=== PATIENT | female | born 1975 | race Caucasian/White ===

== ENCOUNTER 2019-05-15 10:53 | Observation (INO) | payer MEDICAID ==
[~2019-05-15] VITALS: Ht 145 cm; Wt 66.3 kg
[~2019-05-15 10:53] MED LIST: ALBU8.5H4 IH; CITA40TA19 PO; GBPN300C PO; HYDR-34 PO; HYDR-623 PO; LSNP20T PO; METF-380 PO; PENI500T PO; RT-FLOV110 INH; TRAZ50TA67 PO
--- NOTE | 2019-05-15 11:27 | ED Chest Pain ---
General Chief Complaint: Chest Pain Stated Complaint: LEFT SIDED CHEST PAIN Nursing Triage Note: PT AMB TO RM 10 WITH COMPLAINT OF CHEST PAIN THAT STARTED LAST NIGHT. STATES TOOK ASA AND NITRO AT HOME LAST NIGHT AND WENT TO [facility] BUT LEFT AMA FROM THEIR WITHOUT GETTING RESULTS. Nursing Sepsis Screen: No Definite Risk History of Present Illness Date Seen by Provider: May 15, 2019 Time Seen by Provider: 11:05 Initial Comments 44 year old female presents with chest pain, has been intermittent chest pain for 48 hours. She was seen in ED at [facility] on 05/11/19 for anxiety and was given Valium; 05/14/19 for chest pain, left before work up was complete. She reports that her chest pain will last anywhere from 10 minutes to 20 minutes it is associated with some nausea but no diaphoresis. She is a type II diabetic who uses metformin, Lantus and NovoLog. She recently [place] [facility] [place] and is not current on all her medications and has not established with a PCP or Contract Design Agent. In 2012 or 2013 she had an AK, she was hospitalized in [facility], she did not have a heart catheterization or other cardiac surgeries. She does report having echocardiogram but is unaware of her results. She also reports a history of atrial fibrillation, however she is not taking any medication for this and is not anticoagulated. She has a history of COPD and uses albuterol inhaler, she has not done this since yesterday. With her recent move, she is unsure where her glucometer isn't has not checked her glucose regularly. She is a poor historian. Timing/Duration: intermittent, 2-3 days Severity/Quality: moderate (8/10) Location: substernal Radiation: arms (left), shoulders, back Activities at Onset: none Prior CP/Workup: angina Modifying Factors: improves with rest ASA po MANAGER SUPPLY CHAIN PLANNING: Yes NTG SL MANAGER SUPPLY CHAIN PLANNING: No (last evening had 1 dose. ) Associated Symptoms: No abdominal pain, No back pain, No diaphoresis, No dizziness, No edema, No fatigue, No fever/chills, No headache; heartburn, nausea/vomiting; No rash; shortness of breath (chronic with exertion, no change and none at rest. ); No swelling/lump in chest, No syncope, No weakness Allergies and Home Medications Allergies Coded Allergies: clindamycin (Verified Allergy, Unknown, 05/15/19) ketorolac (Verified Allergy, Unknown, 05/15/19) Home Medications Albuterol Sulfate 8.5 Gm Hfa.aer.ad, 8.5 GM IH, (Reported) Citalopram Hydrobromide 40 Mg Tablet, 1 EACH PO DAILY, (Reported) Fluticasone Propionate 1 Puff Puff, 1 PUFF INH BID, (Reported) Gabapentin 300 Mg Cap, 300 MG PO TID, (Reported) Hydrocodone Bit/Acetaminophen 1 Ea Tablet, 1 TAB PO PRN, (Reported) Hydrocodone Bit/Acetaminophen 1 Tab Tablet, 1 EACH PO Q4HR PRN Prescribed by: MARTELL MATTA on 04/23/13 1552 Lisinopril 20 Mg Tab, 20 MG PO DAILY, (Reported) Metformin Hcl 1,000 Mg Tablet, 1 EACH PO BID WITH MEALS, (Reported) Penicillin V Potassium 500 Mg Tablet, 1 TAB PO QID Prescribed by: MARTELL MATTA on 04/23/13 155 Trazodone Hcl 50 Mg Tablet, 50 MG PO HS, (Reported) Patient Home Medication List Home Medication List Reviewed: Yes Review of Systems Review of Systems Constitutional: no symptoms reported, see HPI Respiratory: See HPI, SOA With Exertion, Wheezing Cardiovascular: See HPI Gastrointestinal: See HPI, Nausea Genitourinary: No Symptoms Reported, See HPI Musculoskeletal: no symptoms reported, see HPI Skin: no symptoms reported, see HPI Psychiatric/Neurological: See HPI, Anxiety (related to sister and niece who have recenty Overdosed on fentanyl and meth) Endocrine: No Symptoms Reported, See HPI All Other Systems Reviewed Negative Unless Noted: Yes Past Aojjnpw-Iezudt-Csxphe Hx Past Med/Social Hx: Reviewed Nursing Past Med/Soc Hx Patient Social History Alcohol Use: Denies Use Recreational Drug Use: Yes Drug of Choice: MARIJUANA Smoking Status: Current Everyday Smoker Type Used: Cigarettes Recent Foreign Travel: No Contact w/Someone Who Travel: No Recent Infectious Disease Expo: No Immunizations Up To Date Tetanus Booster (TDap): Unknown PED Vaccines UTD: Yes Past Medical History Surgeries: Yes Abdominal, Gallbladder, Tubal Ligation Respiratory: No Cardiac: Yes Atrial Fibrillation, Heart Attack, High Cholesterol, Hypertension Neurological: No 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 oz. [id number]; 28.00 BMI Method: General Appearance: No Apparent Distress, WD/WN; No Anxious HEENT: PERRL/EOMI, TMs Normal, Normal ENT Inspection, Pharynx Normal Neck: Full Range of Motion, Normal Inspection, Non Tender, Supple Respiratory: Chest Non Tender, No Accessory Muscle Use, Rhonci (left>right), Wheezing Cardiovascular: Regular Rate, Rhythm, No Edema, No Murmur, Normal Peripheral Pulses Gastrointestinal: Normal Bowel Sounds, Non Tender, Soft Extremity: Normal Capillary Refill, Normal Inspection, Normal Range of Motion, Non Tender Neurologic/Psychiatric: Alert, Oriented x3, No Motor/Sensory Deficits, Normal Mood/Affect Skin: Normal Color, Warm/Dry Lymphatic: No Adenopathy Progress/Results/Core Measures Results/Orders Lab Results Laboratory Tests Test 05/15/19 11:10 05/15/19 11:35 05/15/19 11:37 Range/Units White Blood Count 8.2 4.3-11.0 10^3/uL Red Blood Count 3.64 L 4.35-5.85 10^6/uL Hemoglobin 13.4 11.5-16.0 G/DL Hematocrit 39 35-52 % Mean Corpuscular Volume 108 H 80-99 FL Mean Corpuscular Hemoglobin 37 H 25-34 PG Mean Corpuscular Hemoglobin Concent 34 32-36 G/DL Red Cell Distribution Width 12.7 10.0-14.5 % Platelet Count 290 130-400 10^3/uL Mean Platelet Volume 9.6 7.4-10.4 FL Neutrophils (%) (Auto) 48 42-75 % Lymphocytes (%) (Auto) 42 12-44 % Monocytes (%) (Auto) 8 0-12 % Eosinophils (%) (Auto) 2 0-10 % Basophils (%) (Auto) 1 0-10 % Neutrophils # (Auto) 3.9 1.8-7.8 X 10^3 Lymphocytes # (Auto) 3.5 1.0-4.0 X 10^3 Monocytes # (Auto) 0.7 0.0-1.0 X 10^3 Eosinophils # (Auto) 0.2 0.0-0.3 10^3/uL Basophils # (Auto) 0.1 0.0-0.1 10^3/uL Prothrombin Time 12.4 12.2-14.7 SEC INR Comment 0.9 0.8-1.4 Activated Partial Thromboplast Time 26 24-35 SEC D-Dimer 0.23 0.00-0.49 UG/ML Sodium Level 136 135-145 MMOL/L Potassium Level 4.8 3.6-5.0 MMOL/L Chloride Level 109 H 98-107 MMOL/L Carbon Dioxide Level 20 L 21-32 MMOL/L Anion Gap 7 5-14 MMOL/L Blood Urea Nitrogen 14 7-18 MG/DL Creatinine 0.88 0.60-1.30 MG/DL Estimat Glomerular Filtration Rate > 60 BUN/Creatinine Ratio 16 Glucose Level 155 H 70-105 MG/DL Calcium Level 8.8 8.5-10.1 MG/DL Corrected Calcium 8.8 8.5-10.1 MG/DL Magnesium Level 1.6 1.6-2.4 MG/DL Total Bilirubin 0.2 0.1-1.0 MG/DL Aspartate Amino Transf (AST/SGOT) 11 5-34 U/L Alanine Aminotransferase (ALT/SGPT) 12 0-55 U/L Alkaline Phosphatase 77 40-136 U/L Myoglobin 20.5 10.0-92.0 NG/ML Troponin I < 0.028 <0.028 NG/ML Total Protein 6.9 6.4-8.2 GM/DL Albumin 4.0 3.2-4.5 GM/DL Glucometer 119 H 70-110 MG/DL Urine Color YELLOW Urine Clarity CLEAR Urine pH 6 5-9 Urine Specific [place] 1.015 L 1.016-1.022 Urine Protein 2+ H NEGATIVE Urine Glucose (UA) NEGATIVE NEGATIVE Urine Ketones NEGATIVE NEGATIVE Urine Nitrite NEGATIVE NEGATIVE Urine Bilirubin NEGATIVE NEGATIVE Urine Urobilinogen NORMAL NORMAL MG/DL Urine Leukocyte Esterase 2+ H NEGATIVE Urine RBC (Auto) NEGATIVE NEGATIVE Urine RBC NONE /HPF Urine WBC 0-2 /HPF Urine Squamous Epithelial Cells TNTC H /HPF Urine Crystals NONE /LPF Urine Bacteria FEW H /HPF Urine Casts NONE /LPF Urine Mucus NEGATIVE /LPF Urine Culture Indicated NO Urine Opiates Screen NEGATIVE NEGATIVE Urine Oxycodone Screen NEGATIVE NEGATIVE Urine Methadone Screen NEGATIVE NEGATIVE Urine Propoxyphene Screen NEGATIVE NEGATIVE Urine Barbiturates Screen POSITIVE H NEGATIVE Ur Tricyclic Antidepressants Screen POSITIVE H NEGATIVE Urine Phencyclidine Screen NEGATIVE NEGATIVE Urine Amphetamines Screen NEGATIVE NEGATIVE Urine Methamphetamines Screen NEGATIVE NEGATIVE Urine Benzodiazepines Screen POSITIVE H NEGATIVE Urine Cocaine Screen NEGATIVE NEGATIVE Urine Cannabinoids Screen NEGATIVE NEGATIVE My Orders Orders - PRETTY FATIMA METAPHYSICIST Cbc With Automated Diff (05/15/19 11:22) Magnesium (05/15/19 11:22) Ekg Tracing (05/15/19 11:22) Cardiac Profile 1 (05/15/19 11:22) Comprehensive Metabolic Panel (05/15/19 11:22) Myoglobin Serum (05/15/19 11:22) Protime With Inr (05/15/19 11:22) Partial Thromboplastin Time (05/15/19 11:22) Monitor-Rhythm Ecg Trace Only (05/15/19 11:22) Ed Iv/Invasive Line Start (05/15/19 11:22) Fibrin Degradation Products (05/15/19 11:22) Nitroglycerin 0.4 Mg Btl 25's (Nitrostat (05/15/19 11:30) Chest Pa/Lat (2 View) (05/15/19 11:22) Drug Screen Stat (Urine) (05/15/19 11:22) Ua Culture If Indicated (05/15/19 11:22) Accucheck Stat ONCE (05/15/19 11:24) Ed Iv/Invasive Line Start (05/15/19 11:30) Ns Iv 1000 Ml (Sodium Chloride 0.9%) (05/15/19 11:30) Ondansetron Injection (Zofran Injectio (05/15/19 11:30) Lidocaine 2% Viscous 15 Ml (Xylocaine Vi (05/15/19 12:30) Antacid Suspension (Mylanta Suspension (05/15/19 12:30) Albuterol/Ipra Inhalation Soln (Duoneb I (05/15/19 12:30) Svn Small Volume Nebulizer (05/15/19 12:23) Morphine Injection (Morphine Injection (05/15/19 12:34) Medications Given in ED Current Medications Medications Dose Ordered Sig/Maki Route Start Time Stop Time Status Last Admin Dose Admin Al Hydrox/Mg Hydrox/Simethicone 30 ml ONCE ONCE PO 05/15/19 12:30 05/15/19 12:31 DC 05/15/19 12:29 30 ML Albuterol/ Ipratropium 3 ml ONCE ONCE INH 05/15/19 12:30 05/15/19 12:31 DC 05/15/19 12:36 3 ML Lidocaine HCl 15 ml ONCE ONCE PO 05/15/19 12:30 05/15/19 12:31 DC 05/15/19 12:29 15 ML Nitroglycerin 0.4 mg UD PRN SL 05/15/19 11:30 05/15/19 12:46 DC 05/15/19 12:46 0.4 MG Ondansetron HCl 4 mg ONCE ONCE IVP 05/15/19 11:30 05/15/19 11:33 DC 05/15/19 12:09 4 MG Vital Signs/I&O 05/15/19 05/15/19 05/15/19 10:58 10:58 12:36 Temp 35.8 Pulse 85 Resp 21 B/P (MAP) 146/97 (113) Pulse Ox 99 98 O2 Delivery Room Air Room Air Room Air Blood Pressure Mean: 113 Progress Progress Note : Time: 11:05 Progress Note Patient seen and evaluated, will start chest pain workup including EKG, chest x- ray, and labs. She took aspirin prior to arrival, will give nitroglycerin one tablet and repeat up to 3 total doses. 1140 EKG and CXR negative. Awaiting labs. Nausea improved after Zofran. 12:00 will give second dose of Nitro, Duoneb tx and continue to monitor. 1225 Patient reports some improvement with DuoNeb, but still feels pain is an issue and would like to try Morphine. Will give 2 mg. 1240 Patient report GERD, will give GI Cocktail 1250 Patient reports pain improving, 4/10. After 3 doses of Nitro, Morphine 2 mg IV and GI cocktail. [address] Curiel, recommended admission, Echo, Toprol XL [address] Hawk to admit to hospitalist service, she agreed. 1320 Patient taken to Cardiac Stepdown. Remained stable, reports her pain is starting to increase again. Initial ECG Impression Date: May 15, 2019 Initial ECG Impression Time: 10:55 Initial ECG Rate: 79 Initial ECG Rhythm: Normal Sinus Initial ECG Intervals: Normal Initial ECG Intervals MN 148, QRSD 92, QT 376, QTC 432. [place] P 50, QRS 7, T 52. Initial ECG Impression: Normal Initial ECG Comparisson: No Previous ECG Available Comment Reviewed with Dr. Blevins, agreed with interpretation. Diagnostic Imaging Diagonstic Imaging: Xray Plain Films/CT/US/NM/MRI: chest Comments NAME: KAREL BRYANT [facility] REC#: [id number] PT STATUS: REG ER : 1975 PHYSICIAN: PRETTY FATIMA ADMIT DATE: 05/15/19/ER Draft Date of Exam:05/15/19 CHEST PA/LAT (2 VIEW) INDICATION: Chest pain. COMPARISON: None. FINDINGS: Frontal and lateral views of the chest demonstrate normal heart size and pulmonary vascularity. The lungs are clear. There are no signs of infiltrate, pleural effusions or pneumothoraces. The visualized osseous structures show no acute abnormalities. IMPRESSION: 1. No acute process. No signs of infiltrates, effusions or pneumothoraces. Dictated on workstation # [id number] Dict: 05/15/19 1145 Trans: 05/15/19 1146 [id number] Interpreted by: JERRY PEÑA MD Electronically signed by: Reviewed: Reviewed by Me Departure Impression Primary Impression: Chest pain Qualified Codes: R07.9 - Chest pain, unspecified Additional Impressions: A-fib Qualified Codes: I48.91 - Unspecified atrial fibrillation Diabetes type 2, controlled Qualified Codes: E11.9 - Type 2 diabetes mellitus without complications; Z79.4 - long-term (current) use of insulin Anxiety GERD (gastroesophageal reflux disease) Qualified Codes: K21.9 - Gastro-esophageal reflux disease without esophagitis Disposition: ADMITTED INPATIENT Condition: Stable Admissions Decision to Admit Reason: Admit from ER (General) Decision to Admit/Date: May 15, 2019 Time/Decision to Admit Time: 13:00 Departure-Patient Inst. Referrals: KRISTAL MARIE (PCP/Family) Primary Care Physician Copy Copies To 1: GIL CURIEL MD FACP FAC CCDS PRETTY FATIMA May 15, 2019 11:27
[2019-05-15] MEDS ORDERED: NS IV 1000 ML 1,000 ML IV SCH (11:30)
[2019-05-15] MEDS ORDERED: ONDANSETRON 4 MG/2 ML (SDV) Z0FRAN IVP ONE (11:30)
[2019-05-15 11:31] LABS: BASOPHILS # (AUTO) 0.1 10^3/uL (0.0-0.1); BASOPHILS % (AUTO) 1 % (0-10); EOSINOPHILS # (AUTO) 0.2 10^3/uL (0.0-0.3); EOSINOPHILS % (AUTO) 2 % (0-10); HEMATOCRIT 39 % (35-52); HEMOGLOBIN 13.4 G/DL (11.5-16.0); LYMPHOCYTES # (AUTO) 3.5 X 10^3 (1.0-4.0); LYMPHOCYTES % (AUTO) 42 % (12-44); MEAN CORPUSCULAR HEMOGLOBIN 37 PG (25-34); MEAN CORPUSCULAR HGB CONC 34 G/DL (32-36); MEAN CORPUSCULAR VOLUME 108 FL (80-99); MEAN PLATELET VOLUME 9.6 FL (7.4-10.4); MONOCYTES # (AUTO) 0.7 X 10^3 (0.0-1.0); MONOCYTES % (AUTO) 8 % (0-12); NEUTROPHILS # (AUTO) 3.9 X 10^3 (1.8-7.8); NEUTROPHILS % (AUTO) 48 % (42-75); PLATELET COUNT 290 10^3/uL (130-400); RED CELL DISTRIBUTION WIDTH 12.7 % (10.0-14.5); WHITE BLOOD COUNT 8.2 10^3/uL (4.3-11.0)
[2019-05-15 11:36] LABS: INR 0.9 (0.8-1.4); PROTHROMBIN TIME PATIENT 12.4 SEC (12.2-14.7)
[2019-05-15 11:46] LABS: ALANINE AMINOTRANSFERASE 12 U/L (0-55); ALKALINE PHOSPHATASE 77 U/L (40-136); BILIRUBIN,TOTAL 0.2 MG/DL (0.1-1.0); BUN/CREATININE RATIO 16; CALCIUM 8.8 MG/DL (8.5-10.1); CARBON DIOXIDE 20 MMOL/L (21-32); CHLORIDE 109 MMOL/L (98-107); CREATININE SERUM 0.88 MG/DL (0.60-1.30); GFR ESTIMATED > 60; GLUCOSE 155 MG/DL (70-105); MAGNESIUM 1.6 MG/DL (1.6-2.4); POTASSIUM 4.8 MMOL/L (3.6-5.0); SODIUM 136 MMOL/L (135-145); TOTAL PROTEIN 6.9 GM/DL (6.4-8.2)
--- NOTE | 2019-05-15 11:46 | Diagnostic Imaging Report ---
INDICATION: Chest pain. COMPARISON: None. FINDINGS: Frontal and lateral views of the chest demonstrate normal heart size and pulmonary vascularity. The lungs are clear. There are no signs of infiltrate, pleural effusions or pneumothoraces. The visualized osseous structures show no acute abnormalities. IMPRESSION: 1. No acute process. No signs of infiltrates, effusions or pneumothoraces. Dictated by: Dictated on workstation # [id number]
[2019-05-15 11:59] LABS: AMPHETAMINE SCREEN, URINE NEGATIVE (NEGATIVE); BARBITURATE SCREEN URINE POSITIVE (NEGATIVE); BENZODIAZEPINES SCREEN URINE POSITIVE (NEGATIVE); CANNABINOID SCREEN, URINE NEGATIVE (NEGATIVE); COCAINE SCREEN URINE NEGATIVE (NEGATIVE); METHADONE STAT NEGATIVE (NEGATIVE); METHAMPHETAMINE SCREEN URINE S NEGATIVE (NEGATIVE); OPIATE SCREEN URINE NEGATIVE (NEGATIVE); OXYCODONE STAT NEGATIVE (NEGATIVE); PROPOXYPHENE STAT NEGATIVE (NEGATIVE); TRICYCLIC ANTIDEPRESSANTS SCRE POSITIVE (NEGATIVE)
[2019-05-15 12:02] LABS: BILIRUBIN,URINE NEGATIVE (NEGATIVE); CLARITY,URINE CLEAR; COLOR,URINE YELLOW; GLUCOSE, URINE (UA) NEGATIVE (NEGATIVE); KETONES,URINE NEGATIVE (NEGATIVE); LEUKOCYTE ESTERASE ,URINE 2+ (NEGATIVE); NITRITE,URINE NEGATIVE (NEGATIVE); PH,URINE 6 (5-9); PROTEIN,URINE 2+ (NEGATIVE); WBC,URINE 0-2 /HPF
[2019-05-15 12:03] LABS: BACTERIA,URINE FEW /HPF; SQUAMOUS EPITHELIAL CELL,UR TNTC /HPF
[2019-05-15] MEDS: NITROGLYCERIN 0.4 MG SL TABS BTL 25'S SL PRN ×3 (12:09→12:46)
[2019-05-15] MEDS ORDERED: RT-ALBUTEROL/IPRATROPIUM 3 ML (DUONEB) VIAL INH ONE (12:30)
[2019-05-15] MEDS ORDERED: ANTACID SUSP 30 ML UDC (MYLANTA) PO ONE (12:30)
[2019-05-15] MEDS ORDERED: LIDOCAINE 2% VISCOUS 15 ML UDC PO ONE (12:30)
[2019-05-15] MEDS ORDERED: morphine INJ 10 MG/ML 1ML (SYR OR VIAL) IVP STA (12:34)
[2019-05-15] MEDS ORDERED: meTOproloL SUCCINATE 50 MG (TOPROL XL) TAB PO SCH (13:30)
[2019-05-15 13:42] VITALS: BP 149/89
[2019-05-15] MEDS ORDERED: ONDANSETRON 4 MG/2 ML (SDV) Z0FRAN IV PRN (14:00)
[2019-05-15] MEDS ORDERED: NITROGLYCERIN 0.4 MG SL TABS BTL 25'S SL PRN (14:00)
[2019-05-15 14:02] VITALS: BP 149/89
--- NOTE | 2019-05-15 14:15 | History & Physical-Hospitalist ---
History of Present Illness HPI/Chief Complaint Pt is a 44yoCF with a PMH of COPD, HTN, IDDMII, who presented to the ER due to chest pain. She was seen in the ER on 05/11 at [place] and was diagnosed ith anxiety and discharged home. She returned last night but left prior to complete workup as she believes they "tagged me as a drug seeker." She reports he chest pain has continued but is intermittent, lasting 10-20 minutes. She states it is under her left breast and is worse with a deep breath. She is worried she has pneumonia. She also reports increased cough, diaphoresis and chills, and increased inhaler use. She reports a history of COPD but is not on any co ntroller medicines. She is a current smoker and smokes 5/cig per day. She does smoke marijuana around 1x/month as well. Source: patient Date Seen 05/15/19 Time Seen by a Provider: 13:50 Attending Physician Yulissa Hawk MD PCP Humaira Juarez Referring Physician Date of Admission May 15, 2019 at 13:18 Home Medications & Allergies Home Medications Reviewed patient Home Medication Reconciliation performed by pharmacy medication reconciliations seed laboratory technician and/or nursing. Patients Allergies have been reviewed. Allergies Allergies Coded Allergies clindamycin (Verified Allergy, Unknown, 05/15/19) ketorolac (Verified Allergy, Unknown, 05/15/19) Past Bkorxbt-Plzfrk-Ggossf Hx Past Med/Social Hx: Reviewed Nursing Past Med/Soc Hx Patient Social History Alcohol Use: Denies Use Recreational Drug Use: Yes Drug of Choice: MARIJUANA Smoking Status: Current Everyday Smoker Type Used: Cigarettes Recent Foreign Travel: No Contact w/other who traveled: No Recent Infectious Disease Expo: No Immunizations Up To Date Tetanus Booster (TDap): Unknown Pediatric: Yes Past Medical History Surgeries: Abdominal, Gallbladder, Tubal Ligation Cardiac: Atrial Fibrillation, Heart Attack, High Cholesterol, Hypertension Tubal Ligation Endocrine: Diabetes, Insulin dep Cancer: Liver Psychosocial: Anxiety, Depression History of Blood Disorders: Yes (Hepatitis C) Review of Systems Constitutional: chills, diaphoresis, fever (subjective) EENTM: no symptoms reported Respiratory: cough; No hemoptysis; phlegm (yellow), wheezing Cardiovascular: see HPI, chest pain Gastrointestinal: no symptoms reported Genitourinary: no symptoms reported Musculoskeletal: no symptoms reported Skin: no symptoms reported Psychiatric/Neurological: No Symptoms Reported Physical Exam Physical Exam Vital Signs Vital Signs - First Documented 05/15/19 10:58 Temp 35.8 Pulse 85 Resp 21 B/P (MAP) 146/97 (113) Pulse Ox 99 O2 Delivery Room Air Capillary Refill : Less Than 3 Seconds Height, Weight, BMI Height: '" Weight: 160lbs. oz. [id number]; 28.10 BMI Method: General Appearance: No Apparent Distress, Chronically ill HEENT: PERRL/EOMI, Moist Mucous Membranes; No Scleral Icterus (L), No Scleral Icterus (R) Neck: Normal Inspection, Supple Respiratory: No Accessory Muscle Use, No Respiratory Distress, Rhonci, Wheezing Cardiovascular: Regular Rate, Rhythm, No Murmur Gastrointestinal: Normal Bowel Sounds, Non Tender, Soft Extremity: Non Tender, No Calf Tenderness, No Pedal Edema Neurologic/Psychiatric: Alert, Oriented x3, Normal Mood/Affect Skin: Normal Color, Warm/Dry, Tattoos/Piercings Results Results/Procedures Labs Laboratory Tests 05/15/19 11:10 Patient resulted labs reviewed. Imaging: Reviewed Imaging Report Assessment/Plan Admission Diagnosis Chest Pain Admission Status: Observation Assessment and Plan Chest Pain COPD Exacerbation Cardiology consulted, serial troponins Echo ordered Likely due to COPD exacerbation Will start steroids, Advair, and Singulair CXR negative for infiltrate, procalcitonin ordered On Room air IDDMII Continue home meds when med rec available HTN Continue home meds when med rec available Tobacco Abuse Marijuana Abuse Recommended cessation Diagnosis/Problems Diagnosis/Problems (1) COPD (chronic obstructive pulmonary disease) Qualifiers: COPD type: COPD with acute exacerbation Qualified Codes: J44.1 - Chronic obstructive pulmonary disease with (acute) exacerbation (2) HTN (hypertension) (3) Chest pain Status: Acute Qualifiers: Chest pain type: unspecified Qualified Codes: R07.9 - Chest pain, unspecified (4) GERD (gastroesophageal reflux disease) Status: Acute Qualifiers: Esophagitis presence: esophagitis presence not specified Qualified Codes: K21.9 - Gastro-esophageal reflux disease without esophagitis (5) Anxiety Status: Acute Clinical Quality Measures AMI/AHF: ASA po Prior to arrival: Yes YULISSA HAWK MD May 15, 2019 14:15
[2019-05-15] MEDS: morphine INJ 4 MG/ML 1 ML (VIAL/SYRINGE) IV PRN ×4 (14:22→21:26)
[2019-05-15] MEDS ORDERED: predniSONE 20 MG TAB PO NR (14:24)
[2019-05-15] MEDS ORDERED: FLU QUADRIvalent (5+ YOA) 2019-2020 (AFLURIA) 0.5 ML IM ONE (14:30)
[2019-05-15] MEDS ORDERED: ATOR40TA70 PO (15:35)
[2019-05-15] MEDS ORDERED: INSU100V SQ (15:35)
[2019-05-15] MEDS ORDERED: CHOL500044 PO (15:35)
[2019-05-15] MEDS ORDERED: INSU100V6 SQ (15:35)
[2019-05-15] MEDS ORDERED: AMIT25TA9 PO (15:35)
[2019-05-15] MEDS ORDERED: LISI-552 PO (15:35)
[2019-05-15] MEDS ORDERED: GABA-490 PO (15:35)
[2019-05-15] MEDS ORDERED: ACET-2267 PO (15:35)
[2019-05-15] MEDS ORDERED: MULT-141 PO (15:35)
[2019-05-15] MEDS ORDERED: BUTA1TAB9 PO (15:35)
[2019-05-15] MEDS ORDERED: METF-399 PO (15:35)
[2019-05-15 15:38] VITALS: BP 146/97
[2019-05-15] MEDS ORDERED: RT-ALBUINH IH (15:39)
[2019-05-15] MEDS ORDERED: DICL100G18 TP (15:39)
[2019-05-15] MEDS ORDERED: FLUT16SP22 NS (15:42)
[2019-05-15] MEDS ORDERED: VENL75CA PO (15:42)
[2019-05-15] MEDS ORDERED: CETI10TA20 PO (15:42)
--- NOTE | 2019-05-15 15:42 | NUR ---
SPOKE WITH THE PATIENT ABOUT HER MEDICATIONS. SHE STATES SHE USES [facility] ON [address] IN [place] BUT HAS RECENTLY MOVED HERE SO PREVIOUSLY HER SCRIPTS WERE FILLED AT [facility] IN [facility]. THE PATIENT LISTED HER MEDICATIONS AND FREQUENCIES TO ME THEN I CALLED THAT [facility] LOCATION FOR A LIST OF RECENTLY FILLED MEDICATION. [facility] FILLED: (THE CHECKED THEIR CENTRAL PROFILE SO MULTIPLE LOCATIONS) 05-14-19 ZYRTEC 10MG HS 05-14-19 EFFEXOR XR 75MG DAILY #30 05-14-19 FLONASE 1 SPRAY NS BID 05-10-19 GABAPENTIN 400MG TID (ONLY TAKES IT BID) 05-10-19 HUMALOG VIALS 5 UNITS TIDAC 05-10-19 LANTUS VIALS 14 UNITS HS 05-01-19 BUTALBITAL/ACETAMINOPHEN/CAFFEINE 325-50-40 Q4H PRN 04-28-19 AMITRIPTYLINE 25MG HS 03-01-19 METFORMIN 1000MG BID #60 03-01-19 LISINOPRIL 20MG DAILY #30 01-27-19 LIPITOR 40MG HS #30 I NOTED THE PAST DUE FILL DATES ON THE MED REC OF THE ABOVE MEDICATIONS. SHE REPORTED TAKING THE FOLLOWING HOWEVER THEY HAVE NOT BEEN FILLED RECENTLY. I CHECKED WITH [facility] AND DID NOT HAVE ANY RECENT FILLS. I DID NOT INCLUDE THESE ON THE MED REC AT THIS TIME. 12-31-16 SOMA 350MG TID PRN #90 12-31-16 DIAZEPAM 2MG BID PRN #60 NOT OF FILE AT [facility] WAS PROAIR AND VOLTAREN GEL. SHE STATES SHE THINKS SHE HAS RECEIVED THESE MEDICATIONS SAMPLES, SHE DOES HAVE THEM AND USES THEM NEEDED. OTC MEDS: TYLENOL 2 PRN WOMEN'S VITAMIN DAILY VITAMIN D3 (DOES NOT KNOW THE DOSE BUT BUYS OTC AND ONLY TAKES 1 TIME WEEKLY ON MONDAYS.
[2019-05-15] MEDS: NS IV 1000 ML 1,000 ML IV SCH (15:46)
[2019-05-15 16:00] VITALS: BP 150/92
[2019-05-15] MEDS ORDERED: RT-ALBUTEROL/IPRATROPIUM 3 ML (DUONEB) VIAL INH PRN (16:00)
[2019-05-15] MEDS ORDERED: NON-FORMULARY MEDICATION 1 EA EA (Acetaminophen (Tylenol Extra Strength) 1,000 MG) PO PRN (16:45)
[2019-05-15] MEDS ORDERED: hydrOXYzine (ATARAX) 10 MG TAB PO PRN (16:45)
[2019-05-15] MEDS ORDERED: ACETAMINOPHEN 500 MG TAB (TYLENOL) PO PRN (17:00)
--- NOTE | 2019-05-15 18:34 | Consultation-Cardiology ---
HPI-Cardiology Cardiology Consultation: Date of Consultation 05/15/19 Time Seen by a Provider: 18:00 Date of Admission Attending Physician Barbara Hawk MD Admitting Physician Humaira Juarez Consulting Physician GIL SANCHEZ MD, FACP, FACC, [facility] [place], [facility] HPI: Chief Complaint: CC: Chest discomfort HPI 44 yo woman admitted with increasing shortness of breath an intermittent chest discomfort for two weeks. Shortness of breath is chronic, but slowly progressive. Denies fever or chills or palp or syncope or leg swelling. Chest discomfort: onset two weeks ago, daily episodes lasting from a few min to an hour, L lateral chest, nonradiating, mild to mod, sometimes sharp, sometimes dull, w/o aggravating or relieving factors. Review of Systems-Cardiology Review of Systems Constitutional: malaise, tiredness; No weight loss, No weight gain Eyes: No vision change Ears/Nose/Throat: No ear discharge, No recent hearing loss, No ulcerations Respiratory: As described under HPI Cardiovascular: As described under HPI Gastrointestinal: No diarrhea, No nausea, No vomiting Genitourinary: No dysuria, No hematuria, No urine frequency changes Musculoskeletal: back pain (chronic) Skin: No rash, No ulcerations Psychiatric/Neurological: No seizure, No focal weakness, No syncope Hematologic: No bleeding abnormalities All Other Systems Reviewed Negative Unless Noted: Yes ZYP-Vydcec-Ofwipy Hx Patient Social History Alcohol Use: Denies Use Recreational Drug Use: Yes Drug of Choice: MARIJUANA Smoking Status: Current Everyday Smoker Type Used: Cigarettes Recent Foreign Travel: No Recent Infectious Disease Expo: No Hospitalization with Isolation: Denies Immunizations Up To Date Tetanus Booster (TDap): Unknown Date of Pneumonia Vaccine: Apr 15, 2017 Past Medical History PMH As described under Assessment. Family Medical History Family Medical History: Father of a heart attack in his 40s Allergies and Home Medications Allergies Coded Allergies: clindamycin (Verified Allergy, Unknown, 05/15/19) ketorolac (Verified Allergy, Unknown, 05/15/19) Home Medications Acetaminophen 500 Mg Tablet, 1,000 MG PO Q4H PRN for PAIN-MILD, (Reported) Albuterol Sulfate 1 Puff Puff, 2 PUFF IH Q4H PRN for SHORTNESS OF BREATH, (Reported) 1 PUFF = 90 MCG Amitriptyline HCl 25 Mg Tablet, 25 MG PO HS, (Reported) Atorvastatin Calcium 40 Mg Tablet, 40 MG PO HS, (Reported) LAST FILLD #30 01-27-19 Butalb/Acetaminophen/Caffeine 1 Each Tablet, 1 TAB PO Q4H PRN for MIGRAINE, (Reported) Cetirizine HCl 10 Mg Tablet, 10 MG PO HS, (Reported) Cholecalciferol (Vitamin D3) 5,000 Unit Tablet, 5,000 UNIT PO Mo, (Reported) Diclofenac Sodium 100 Gm Gel..gram., TP TID PRN for HAND PAIN, (Reported) Fluticasone Propionate 16 Gm [place].susp, 1 SPRAY NS BID, (Reported) Gabapentin 400 Mg Capsule, 400 MG PO BID, (Reported) Insulin Glargine,Hum.rec.anlog 100 Unit/1 Ml Vial, 14 UNIT SQ HS, (Reported) Insulin Lispro 100 Unit/1 Ml Vial, 5 ML SQ TIDAC, (Reported) Lisinopril 20 Mg Tablet, 20 MG PO DAILY, (Reported) LAST FILLED #30 03-01-19 Metformin HCl 1,000 Mg Tablet, 1,000 MG PO BID, (Reported) LAST FILLED #60 03-01-19 Multivit with Calcium,Iron,Min 1 Each Tablet, 1 TAB PO DAILY, (Reported) Venlafaxine HCl 75 Mg Cap.er.24h, 75 MG PO DAILY, (Reported) Patient Home Medication List Home Medication List Reviewed: Yes Physical Exam-Cardiology Physical Exam Vital Signs/I&O 05/15/19 05/15/19 05/15/19 05/15/19 10:58 10:58 12:36 13:25 Temp 35.8 Pulse 85 79 Resp 18 B/P (MAP) 146/97 (113) 136/84 Pulse Ox 99 98 99 O2 Delivery Room Air Room Air Room Air Room Air 05/15/19 05/15/19 05/15/19 05/15/19 13:40 13:42 14:02 15:19 Temp 36.5 36.5 Pulse 76 76 96 Resp 18 18 B/P (MAP) 149/89 (109) 149/89 Pulse Ox 96 96 96 O2 Delivery Room Air Room Air Room Air 05/15/19 05/15/19 05/15/19 15:38 16:00 16:00 Temp 35.8 36.4 Pulse 85 74 Resp 18 B/P (MAP) 150/92 (111) Pulse Ox 99 99 O2 Delivery Room Air Room Air Capillary Refill : Less Than 3 Seconds Constitutional: AAO x 3, well-developed, well-nourished HEENT: PERRL, other (edentulous jaws), EOMI Neck: carotid pulses are 2 + bilaterally, with good upstrokes Respiratory: No accessory muscle use; other (fair bilateral air entry, prolonged exp phase) Cardiovascular: regular rate-rhythm, S1 and S2, systolic murmur (faint EZIO at card base) Gastrointestinal: No tender; soft; No guarding, No rebound; audible bowel sounds Extremities: No swelling, No clubbing, No cyanosis Neurologic/Psychiatric: oriented x 3, other (moves all limbs equally) Skin: No rash on exposed areas, No ulcerations on exposed areas Data Review Labs Laboratory Tests 05/15/19 11:10: White Blood Count 8.2, Red Blood Count 3.64L, Hemoglobin 13.4, Hematocrit 39, Mean Corpuscular Volume 108H, Mean Corpuscular Hemoglobin 37H, Mean Corpuscular Hemoglobin Concent 34, Red Cell Distribution Width 12.7, Platelet Count 290, Mean Platelet Volume 9.6, Neutrophils (%) (Auto) 48, Lymphocytes (%) (Auto) 42, Monocytes (%) (Auto) 8, Eosinophils (%) (Auto) 2, Basophils (%) (Auto) 1, Neutrophils # (Auto) 3.9, Lymphocytes # (Auto) 3.5, Monocytes # (Auto) 0.7, Eosinophils # (Auto) 0.2, Basophils # (Auto) 0.1, Prothrombin Time 12.4, INR Comment 0.9, Activated Partial Thromboplast Time 26, D-Dimer 0.23, Sodium Level 136, Potassium Level 4.8, Chloride Level 109H, Carbon Dioxide Level 20L, Anion Gap 7, Blood Urea Nitrogen 14, Creatinine 0.88, Estimat Glomerular Filtration Rate > 60, BUN/Creatinine Ratio 16, Glucose Level 155H, Calcium Level 8.8, Corrected Calcium 8.8, Magnesium Level 1.6, Total Bilirubin 0.2, Aspartate Amino Transf (AST/SGOT) 11, Alanine Aminotransferase (ALT/SGPT) 12, Alkaline Phosphatase 77, Myoglobin 20.5, Troponin I < 0.028, Total Protein 6.9, Albumin 4.0, Procalcitonin 0.02 05/15/19 11:35: Glucometer 119H 05/15/19 11:37: Urine Color YELLOW, Urine Clarity CLEAR, Urine pH 6, Urine Specific [place] 1.015L, Urine Protein 2+H, Urine Glucose (UA) NEGATIVE, Urine Ketones NEGATIVE, Urine Nitrite NEGATIVE, Urine Bilirubin NEGATIVE, Urine Urobilinogen NORMAL, U rine Leukocyte Esterase 2+H, Urine RBC (Auto) NEGATIVE, Urine RBC NONE, Urine WBC 0-2, Urine Squamous Epithelial Cells TNTCH, Urine Crystals NONE, Urine Bacte kaden FEWH, Urine Casts NONE, Urine Mucus NEGATIVE, Urine Culture Indicated NO, Urine Opiates Screen NEGATIVE, Urine Oxycodone Screen NEGATIVE, Urine Methadone Screen NEGATIVE, Urine Propoxyphene Screen NEGATIVE, Urine Barbiturates Screen POSITIVEH, Ur Tricyclic Antidepressants Screen POSITIVEH, Urine Phencyclidine Screen NEGATIVE, Urine Amphetamines Screen NEGATIVE, Urine Methamphetamines Screen NEGATIVE, Urine Benzodiazepines Screen POSITIVEH, Urine Cocaine Screen NEGATIVE, Urine Cannabinoids Screen NEGATIVE 05/15/19 16:58: Glucometer 180H Laboratory Tests 05/15/19 11:10 A/P-Cardiology Assessment/Admission Diagnosis Chest discomfort of undetermined etiology DM II Hypertension COPD Chronic tobacco use (smokes cigarettes) Fam h/o early CAD Echo of 05/15/19: LVEF 55-60% no RWMA or any significant valvular lesion Discussion and Recomendations * Treat with ASA and bb * Serial card enzymes * If no evidence of ac MS, then MPI for cor risk strat * Advised to quit smoking immediately and completely Clinical Quality Measures AMI/AHF: ASA po Prior to arrival: Yes DVT/VTE Risk/Contraindication: Risk Factor Score Per Nursin RFS Level Per Nursing on Admit: 4+=Very High GIL SANCHEZ MD [facility] May 15, 2019 18:34
[2019-05-15] MEDS ORDERED: REGADENOSON 0.4 MG/5 ML SYR (LEXISCAN) IV ONE (18:45)
[2019-05-15] MEDS: RT-ALBUTEROL/IPRATROPIUM 3 ML (DUONEB) VIAL IH SCH ×2 (19:10→22:17)
[2019-05-15 20:00] VITALS: BP 133/84
[2019-05-15] MEDS ORDERED: RT-ADVAIR HFA 115/21 MCG PER PUFF IH SCH (20:00)
[2019-05-15] MEDS ORDERED: FLUTICASONE NASAL SPRAY (FLONASE) 16 GM BTL NS SCH (21:00)
[2019-05-15] MEDS ORDERED: INSULIN GLARGINE HUM REC ANLOG 14 UNIT SQ SCH (21:00)
[2019-05-15] MEDS ORDERED: AMITRIPTYLINE 25 MG (ELAVIL) TAB PO SCH (21:00)
[2019-05-15] MEDS ORDERED: GABAPENTIN 400 MG (NEURONTIN) CAP PO SCH (21:00)
[2019-05-15] MEDS ORDERED: MONTELUKAST 10 MG (SINGULAIR) TAB PO SCH (21:00)
--- NOTE | 2019-05-15 22:57 | NUR ---
THIS RN CALLED DR. VAZQUEZ TO NOTIFY HIM OF PT BLOOD SUGAR LEVEL OF 261 AND TO INFORM HIM THAT PT NOVOLOG IS SCHEDULED TOMORROW AT 0600. THIS RN ASKED IF DR. VAZQUEZ WANTED THE PT TO HAVE NOVOLOG AT THIS TIME IN WHICH HE STATED "NO." NO NEW ORDERS OBTAINED AT THIS TIME.
[2019-05-16] VITALS: BP 125/83
[2019-05-16] MEDS: morphine INJ 4 MG/ML 1 ML (VIAL/SYRINGE) IV PRN ×4 (00:21→07:50)
[2019-05-16] MEDS: RT-ALBUTEROL/IPRATROPIUM 3 ML (DUONEB) VIAL IH SCH ×3 (01:40→11:20)
[2019-05-16] MEDS: NS IV 1000 ML 1,000 ML IV SCH ×2 (03:20→05:17)
[2019-05-16 04:00] VITALS: BP 120/79
[2019-05-16 05:46] LABS: BASOPHILS % (AUTO) 0 % (0-10); EOSINOPHILS % (AUTO) 0 % (0-10); HEMATOCRIT 37 % (35-52); HEMOGLOBIN 12.4 G/DL (11.5-16.0); LYMPHOCYTES # (AUTO) 2.7 X 10^3 (1.0-4.0); LYMPHOCYTES % (AUTO) 29 % (12-44); MEAN CORPUSCULAR HGB CONC 34 G/DL (32-36); MEAN CORPUSCULAR VOLUME 108 FL (80-99); MEAN PLATELET VOLUME 9.1 FL (7.4-10.4); MONOCYTES # (AUTO) 0.6 X 10^3 (0.0-1.0); MONOCYTES % (AUTO) 7 % (0-12); NEUTROPHILS % (AUTO) 64 % (42-75); PLATELET COUNT 285 10^3/uL (130-400); RED CELL DISTRIBUTION WIDTH 12.6 % (10.0-14.5); WHITE BLOOD COUNT 9.4 10^3/uL (4.3-11.0)
[2019-05-16 05:48] LABS: MEAN CORPUSCULAR HEMOGLOBIN 36 PG (25-34)
[2019-05-16] MEDS ORDERED: inSUlin ASPART (NovoLOG) 1 UNIT/0.01 ML (CHARGE PER UNIT) SC SCH (06:00)
[2019-05-16] MEDS ORDERED: INSULIN LISPRO SQ SCH (06:00)
[2019-05-16 06:05] LABS: ALANINE AMINOTRANSFERASE 12 U/L (0-55); ALBUMIN 3.5 GM/DL (3.2-4.5); ALKALINE PHOSPHATASE 60 U/L (40-136); BILIRUBIN,TOTAL 0.1 MG/DL (0.1-1.0); BUN/CREATININE RATIO 26; CALCIUM 8.4 MG/DL (8.5-10.1); CARBON DIOXIDE 17 MMOL/L (21-32); CHLORIDE 111 MMOL/L (98-107); CHOLESTEROL 236 MG/DL (< 200); GFR ESTIMATED > 60; GLUCOSE 123 MG/DL (70-105); HDL CHOLESTEROL 66 MG/DL (40-60); POTASSIUM 4.3 MMOL/L (3.6-5.0); SODIUM 139 MMOL/L (135-145); TOTAL PROTEIN 6.2 GM/DL (6.4-8.2); TRIGLYCERIDES 157 MG/DL (<150); VLDL CHOLESTEROL 31 MG/DL (5-40)
[2019-05-16] MEDS ORDERED: predniSONE 20 MG TAB PO SCH (07:00)
[2019-05-16] MEDS ORDERED: VENlafaxine XR 75 MG (EFFEXOR XR) CAP PO SCH (07:00)
[2019-05-16 07:45] VITALS: BP 126/78
--- NOTE | 2019-05-16 07:45 | NUR ---
REPORT RECEIVED AND ASSESSMENT COMPLETED. PT C/O CHEST PAIN, PRESSURE IN NATURE 03/04, RADIATES UP INTO NECK. PT STATES SHE FEELS LIKE SHE HAS PNEUMONIA. PT STATES IT HURST WORSE TO TAKE IN A DEEP BREATH. SHE ALSO STATES THAT THIS PAIN DOES NOT FEEL LIKE HER LAST HEART ATTACK. THIS RN ASKS PT IF NITRO WAS GIVEN AND SHE SAID YES BUT IT DIDN'T HELP, PT REQUESTING MORPHINE IV. MORPHINE ADMINISTERED NITRO NOT AVAILABLE IN [facility]. PHARMACY WAS NOTIFIED AND WILL SEND UP NITRO TABS. VITALS ARE STABLE, WILL MONITOR HER CLOSELY.
[2019-05-16] MEDS ORDERED: FLUT12AE4 IH (08:39)
[2019-05-16] MEDS ORDERED: PRD20T PO (08:39)
[2019-05-16] MEDS ORDERED: MONT10TA24 PO (08:39)
[2019-05-16] MEDS ORDERED: ASPIRIN 81 MG CHEW (CHILDREN'S ASA) PO SCH (09:00)
[2019-05-16] MEDS ORDERED: meTOproloL SUCCINATE 50 MG (TOPROL XL) TAB PO SCH (09:00)
[2019-05-16] MEDS ORDERED: lisINopril 20 MG (PRINIVIL) TABLET PO SCH (09:00)
[2019-05-16] MEDS ORDERED: VENLAFAXINE HCL 75 MG PO SCH (09:00)
--- NOTE | 2019-05-16 10:29 | Progress Note - Cardiology ---
Cardiology SOAP Progress Note Objective: I&O/Vital Signs 05/16/19 05/16/19 05/16/19 05/16/19 00:00 00:00 01:00 01:42 Temp 36.6 Pulse 89 87 Resp 16 B/P (MAP) 125/83 (97) Pulse Ox 97 O2 Delivery Room Air Room Air Room Air 05/16/19 05/16/19 05/16/19 05/16/19 04:00 04:00 07:00 07:06 Temp 36.5 Pulse 80 68 Resp 16 B/P (MAP) 120/79 (93) Pulse Ox 99 94 O2 Delivery Room Air Room Air Room Air 05/16/19 05/16/19 05/16/19 07:10 07:45 07:45 Temp 36.7 Pulse 78 Resp 18 B/P (MAP) 126/78 (94) Pulse Ox 98 97 97 O2 Delivery Room Air Room Air 05/16/19 00:00 Intake Total 1550 ml Balance 1550 ml Weight (Pounds): 160 Weight (Calculated Kilograms): 72.076475 Constitutional: AAO x 3, well-developed, well-nourished Respiratory: No accessory muscle use; other (fair bilateral air entry, prolonged exp phase) Cardiovascular: regular rate-rhythm, S1 and S2, systolic murmur (faint EZIO at card base) Gastrointestional: No tender; soft; No guarding, No rebound; audible bowel sounds Extremities: No swelling, No clubbing, No cyanosis Neurologic/Psychiatric: oriented x 3, other (moves all limbs equally) Skin: No rash on exposed areas, No ulcerations on exposed areas Results/Procedures: Labs Laboratory Tests 05/15/19 11:10: White Blood Count 8.2, Red Blood Count 3.64L, Hemoglobin 13.4, Hematocrit 39, Mean Corpuscular Volume 108H, Mean Corpuscular Hemoglobin 37H, Mean Corpuscular Hemoglobin Concent 34, Red Cell Distribution Width 12.7, Platelet Count 290, Mean Platelet Volume 9.6, Neutrophils (%) (Auto) 48, Lymphocytes (%) (Auto) 42, Monocytes (%) (Auto) 8, Eosinophils (%) (Auto) 2, Basophils (%) (Auto) 1, Neutrophils # (Auto) 3.9, Lymphocytes # (Auto) 3.5, Monocytes # (Auto) 0.7, Eosinophils # (Auto) 0.2, Basophils # (Auto) 0.1, Prothrombin Time 12.4, INR Comment 0.9, Activated Partial Thromboplast Time 26, D-Dimer 0.23, Sodium Level 136, Potassium Level 4.8, Chloride Level 109H, Carbon Dioxide Level 20L, Anion Gap 7, Blood Urea Nitrogen 14, Creatinine 0.88, Estimat Glomerular Filtration Rate > 60, BUN/Creatinine Ratio 16, Glucose Level 155H, Calcium Level 8.8, Corrected Calcium 8.8, Magnesium Level 1.6, Total Bilirubin 0.2, Aspartate Amino Transf (AST/SGOT) 11, Alanine Aminotransferase (ALT/SGPT) 12, Alkaline Phosphatase 77, Myoglobin 20.5, Troponin I < 0.028, Total Protein 6.9, Albumin 4.0, Procalcitonin 0.02 05/15/19 11:35: Glucometer 119H 05/15/19 11:37: Urine Color YELLOW, Urine Clarity CLEAR, Urine pH 6, Urine Specific [place] 1.015L, Urine Protein 2+H, Urine Glucose (UA) NEGATIVE, Urine Ketones NEGATIVE, Urine Nitrite NEGATIVE, Urine Bilirubin NEGATIVE, Urine Urobilinogen NORMAL, Urine Leukocyte Esterase 2+H, Urine RBC (Auto) NEGATIVE, Urine RBC NONE, Urine WBC 0-2, Urine Squamous Epithelial Cells TNTCH, Urine Crystals NONE, Urine Bacteria FEWH, Urine Casts NONE, Urine Mucus NEGATIVE, Urine Culture Indicated NO, Urine Opiates Screen NEGATIVE, Urine Oxycodone Screen NEGATIVE, Urine Methadone Screen NEGATIVE, Urine Propoxyphene Screen NEGATIVE, Urine Barbiturates Screen POSITIVEH, Ur Tricyclic Antidepressants Screen POSITIVEH, Urine Phencyclidine Screen NEGATIVE, Urine Amphetamines Screen NEGATIVE, Urine Methamphetamines Screen NEGATIVE, Urine Benzodiazepines Screen POSITIVEH, Urine Cocaine Screen NEGATIVE, Urine Cannabinoids Screen NEGATIVE 05/15/19 16:58: Glucometer 180H 05/15/19 22:29: Glucometer 261H 05/16/19 05:12: Glucometer 131H 05/16/19 05:23: White Blood Count 9.4, Red Blood Count 3.40L, Hemoglobin 12.4, Hematocrit 37, Mean Corpuscular Volume 108H, Mean Corpuscular Hemoglobin 36H, Mean Corpuscular Hemoglobin Concent 34, Red Cell Distribution Width 12.6, Platelet Count 285, Mean Platelet Volume 9.1, Neutrophils (%) (Auto) 64, Lymphocytes (%) (Auto) 29, Monocytes (%) (Auto) 7, Eosinophils (%) (Auto) 0, Basophils (%) (Auto) 0, Neutrophils # (Auto) 6.0, Lymphocytes # (Auto) 2.7, Monocytes # (Auto) 0.6, Eosinophils # (Auto) 0.0, Basophils # (Auto) 0.0, Sodium Level 139, Potassium Level 4.3, Chloride Level 111H, Carbon Dioxide Level 17L, Anion Gap 11, Blood Urea Nitrogen 18, Creatinine 0.70, Estimat Glomerular Filtration Rate > 60, BUN/Creatinine Ratio 26, Glucose Level 123H, Calcium Level 8.4L, Corrected Calcium 8.8, Total Bilirubin 0.1, Aspartate Amino Transf (AST/SGOT) 9, Alanine Aminotransferase (ALT/SGPT) 12, Alkaline Phosphatase 60, Total Protein 6.2L, Albumin 3.5, Triglycerides Level 157H, Cholesterol Level 236H, LDL Cholesterol Direct 160H, VLDL Cholesterol 31, HDL Cholesterol 66H 05/16/19 05:25: Troponin I < 0.028 A/P: Assessment: Chest discomfort of undetermined etiology - no evidence of ACS DM II Hypertension COPD Chronic tobacco use (smokes cigarettes) Fam h/o early CAD Echo of 05/15/19: LVEF 55-60% no RWMA or any significant valvular lesion Plan: * Treat with ASA and bb * Serial card enzymes * If no evidence of ac MS, then MPI for cor risk strat * Advised to quit smoking immediately and completely Clinical Quality Measures AMI/AHF: ASA po Prior to arrival: Yes ROYCE GARCIA May 16, 2019 10:29
[2019-05-16] MEDS: CATHETER FLUSH 10 ML SYR IV PRN ×2 (11:14→12:39)
--- NOTE | 2019-05-16 11:15 | NUR ---
[facility] HERE TO TRANSPORT PATIENT DOWN FOR STRESS TEST.
[2019-05-16] MEDS ORDERED: REGADENOSON 0.4 MG/5 ML SYR (LEXISCAN) IV ONE (12:30)
[2019-05-16 12:37] VITALS: BP 123/92
--- NOTE | 2019-05-16 12:59 | Discharge Summary ---
Diagnosis/Chief Complaint Date of Admission May 15, 2019 at 13:18 Date of Discharge Discharge Date: May 16, 2019 Admission Diagnosis Chest Pain Primary Care LarryHumaira Coleman Hardy Discharge Diagnosis (1) COPD (chronic obstructive pulmonary disease) (2) HTN (hypertension) (3) Chest pain Status: Acute (4) GERD (gastroesophageal reflux disease) Status: Acute (5) Anxiety Status: Acute Discharge Summary Procedures/Consulations Dr Curiel- Cardiology Discharge Physical Exam Allergies: Coded Allergies: clindamycin (Verified Allergy, Unknown, 05/15/19) ketorolac (Verified Allergy, Unknown, 05/15/19) Vitals & I&Os Vital Signs Date Time Temp Pulse Resp B/P (MAP) Pulse Ox O2 Delivery O2 Flow Rate FiO2 05/16/19 14:15 37.0 89 18 154/97 (116) 100 Room Air General Appearance: No Apparent Distress, Chronically ill Respiratory: Lungs Clear, No Accessory Muscle Use, No Respiratory Distress Cardiovascular: Regular Rate, Rhythm, No Murmur Neurologic/Psychiatric: Alert, Oriented x3 Hospital Course Pt was admitted due to chest pain and found to have a COPD exacerbation. She was started on oral prednisone, Advair, and singulair for her COPD along with prn albuterol treatments and improved. Due to history of DE and other risk factors she was seen by cardiology and stress testing was done which revealed no evidence ischemia. She is to follow up with [facility] for primary care as has already been scheduled and with Dr Ramirez for her COPD. Prior to results being available of her stress test she elected to leave AMA. Labs (last 24 hrs) Patient resulted labs reviewed. Pending Labs Imaging: Reviewed Imaging Report Discussion & Recommendations Discharge Planning: >30 minutes discharge planning Discharge Home Medications: Active Scripts Active Advair Hfa 115-21 Mcg Inhaler (Fluticasone/Salmeterol) 12 Gm Hfa.aer.ad 2 Puff IH BID@08,20 Montelukast Sodium 10 Mg Tablet 10 Mg PO HS Prednisone 20 Mg Tab 40 Mg PO DAILY@0700 Reported Effexor Xr (Venlafaxine HCl) 75 Mg Cap.er.24h 75 Mg PO DAILY Fluticasone Propionate 16 Gm [place].susp 1 [place] NS BID Zyrtec (Cetirizine HCl) 10 Mg Tablet 10 Mg PO HS Voltaren (Diclofenac Sodium) 100 Gm Gel..gram. TP TID PRN Proair Hfa (Albuterol Sulfate) 1 Puff Puff 2 Puff IH Q4H PRN 1 PUFF = 90 MCG Amitriptyline HCl 25 Mg Tablet 25 Mg PO HS Women's Daily Formula (Multivit with Calcium,Iron,Min) 1 Each Tablet 1 Tab PO DAILY Tylenol Extra Strength (Acetaminophen) 500 Mg Tablet 1,000 Mg PO Q4H PRN Vitamin D3 (Cholecalciferol (Vitamin D3)) 5,000 Unit Tablet 5,000 Unit PO MO Lisinopril 20 Mg Tablet 20 Mg PO DAILY LAST FILLED #30 03-01-19 Atorvastatin Calcium 40 Mg Tablet 40 Mg PO HS LAST FILLD #30 01-27-19 Dypaot-Kcfjpqdh-Sdrz 50-325-40 (Butalb/Acetaminophen/Caffeine) 1 Each Tablet 1 Tab PO Q4H PRN Lantus (Insulin Glargine,Hum.rec.anlog) 100 Unit/1 Ml Vial 14 Unit SQ HS Metformin HCl 1,000 Mg Tablet 1,000 Mg PO BID LAST FILLED #60 03-01-19 Humalog (Insulin Lispro) 100 Unit/1 Ml Vial 5 Ml SQ TIDAC Gabapentin 400 Mg Capsule 400 Mg PO BID Instructions to patient/family Please see electronic discharge instructions given to patient. Clinical Quality Measures AMI/AHF: ASA po Prior to arrival: Yes DVT/VTE Risk/Contraindication: Risk Factor Score Per Nursin RFS Level Per Nursing on Admit: 4+=Very High Problem Qualifiers (1) COPD (chronic obstructive pulmonary disease): COPD type: COPD with acute exacerbation Qualified Codes: J44.1 - Chronic obstructive pulmonary disease with (acute) exacerbation (2) Chest pain: Chest pain type: unspecified Qualified Codes: R07.9 - Chest pain, unspecified (3) GERD (gastroesophageal reflux disease): Esophagitis presence: esophagitis presence not specified Qualified Codes: K21.9 - Gastro-esophageal reflux disease without esophagitis YULISSA HER MD May 16, 2019 12:59
[2019-05-16 14:15] VITALS: BP 154/97
--- NOTE | 2019-05-16 14:15 | NUR ---
PT ARRIVED BACK TO ROOM. AT APPROX 1410, PT RANG CALL LIGHT AND STATED SHE HAD A HEADACHE AND WANTED SOME MEDICATION. THIS RN WAS ASSISTING WITH CODE AT THAT TIME, BUT DID CHECK ON PATIENT AT 1415. SHE DENIED HEADACHE AT THAT TIME BUT SAID SHE HAD GENERALIZED JOINT PAIN FROM THE STRESS TEST. PATIENT HAD ATE ALL OF LUNCH. I ADVISED PATIENT THAT I HAD TYLENOL TO GIVE HER IF WANTED, SHE REFUSED. I TOLD HER THAT I WOULD ASK FOR SOMETHING STRONGER IN PILL FORM MORPHINE WAS INAPPROPRIATE TO GIVE FOR JOINT PAIN. PATIENT ASKED FOR DIFFERENT TEA TO DRINK. I STATED THAT I DIDN'T KNOW IF I COULD GET SOME RIGHT NOW BUT WOULD CHECK AND OFFERED HER SOMETHING DIFFERENT IN THE MEAN TIME. SHE REFUSED AND SAID "I'M FINE". I WAS LEAVING, EXPLAINING TO HER I WAS GOING TO ASK FOR SOMETHING FOR HER FOR PAIN. SHE TOLD ME TO BRING HER "THE FORM YOU SIGN TO LEAVE". I ASKED HER IF SHE WANTED TO LEAVE AGAINST MEDICAL ADVISE AND SHE SAID "YES. I CAN'T EVEN GET TEA AROUND HERE AND THE TEST CAUSED MY PAIN AND I CAN'T GET PAIN MEDS." I ADVISED THE PATIENT I WAS ASKING ABOUT HER PAIN MEDS AND SHE SAID SHE WAS LEAVING ANYWAY. PT IV WAS DISCONTINUED AND SHE SIGNED THE AMA PAPERWORK AFTER I EXPLAINED TO HER THAT LEAVING MAY RESULT IN HER OR WORSENING IN CHEST PAIN. PT WAS GIVEN HER PERSONAL ITEMS LOCKED UP BY HER ROOM THAT INCLUDED A GOLD DEBIT CARD AND SIX RINGS OF DIFFERENT SHAPES AND SIZES. PT THEN LEFT UNDER HER OWN POWER. DR. HER AND DR LAURA GATES.
--- NOTE | 2019-05-16 17:46 | STRESS TEST ---
DATE OF SERVICE: 05/16/2019 RESTING AND POST REGADENOSON TECHNETIUM-99M TETROFOSMIN SPECT CT IMAGING ORDERING PHYSICIAN: Cherry Curiel MD, VIANCA, FACP, FACC. ATTENDING PHYSICIAN: Dr. Hawk. PRIMARY CARE PHYSICIAN: CINDA Yi CLINICAL DIAGNOSES: Chest discomfort, type 2 diabetes mellitus. Baseline images were carried out after injection of 10.32 mCi of technetium-99m Tetrofosmin. This was followed by 0.4 mg regadenoson and 29.4 mCi of technetium-99m Tetrofosmin for stress imaging. The electrocardiogram showed sinus rhythm at baseline. It did not change significantly with the regadenoson infusion. Review of images at rest and following stress does not indicate any significant perfusion defect consistent with significant myocardial ischemia or infarction. Gated images show normal global left ventricular systolic function with normal regional wall motion. Left ventricular ejection fraction is calculated to be 60%. CONCLUSIONS: 1. No evidence of any significant myocardial ischemia or infarction on this study. 2. Normal regional wall motion. 3. Normal global left ventricular systolic function with a calculated ejection fraction of 60%. Job ID: [id number] DocumentID: [id number] Dictated Date: 05/16/2019 14:28:59 Industrial Relations Specialist Date: 05/16/2019 17:45:23 Dictated By: CHERRY CURIEL MD, MA, FACP, FACC,
[2019-05-22] MEDS ORDERED: VITAMIN D3 5,000 UNITS (CHOLECALCIFEROL ) CAPSULE PO SCH (09:00)
== END 2019-05-16 14:15 | disposition left against medical advice (07) ==
LOC: EDUNIT# 10:53 → ER 10:54 → CSD 13:18
PROVIDERS: ADMIT Family Medicine; ATTEND Family Medicine
DX: J44.1 Chronic obstructive pulmonary disease with (acute) exacerbation (principal); I48.91 Unspecified atrial fibrillation; E11.9 Type 2 diabetes mellitus without complications; E78.00 Pure hypercholesterolemia, unspecified; I10 Essential (primary) hypertension; K21.9 Gastro-esophageal reflux disease without esophagitis; F41.8 Other specified anxiety disorders; F17.210 Nicotine dependence, cigarettes, uncomplicated; F12.90 Cannabis use, unspecified, uncomplicated; Z79.84 Long term (current) use of oral hypoglycemic drugs; Z88.1 Allergy status to other antibiotic agents; Z88.8 Allergy status to other drugs, medicaments and biological substances; Z79.891 Long term (current) use of opiate analgesic; Z79.899 Other long term (current) drug therapy; Z98.51 Tubal ligation status; Z90.89 Acquired absence of other organs; Z86.74 Personal history of sudden cardiac arrest
CPT/HCPCS: 36415; 71046; 78452; 80053; 80061; 80306; 81000; 82962; 83735; 83874; 84145; 84484; 85025; 85379; 85610; 85730; 93005; 93017; 93041; 93306; 94640; 94760

== ENCOUNTER 2019-06-13 17:41 | Emergency (ER) | payer MEDICAID ==
[~2019-06-13] VITALS: Ht 150 cm; Wt 65.0 kg
[~2019-06-13 17:41] MED LIST changes: +ACET-2267 PO; +AMIT25TA9 PO; +ATOR40TA70 PO; +BUTA1TAB9 PO; +CETI10TA20 PO; +CHOL500044 PO; +DICL100G18 TP; +FLUT12AE4 IH; +FLUT16SP22 NS; +GABA-490 PO; +INSU100V SQ; +INSU100V6 SQ; +LISI-552 PO; +METF-399 PO; +MONT10TA24 PO; +MULT-141 PO; +PRD20T PO; +RT-ALBUINH IH; +VENL75CA PO
--- NOTE | 2019-06-13 18:16 | NUR ---
TO ROOM NO CHANGE FROM TRIAGE
[2019-06-13] MEDS ORDERED: LACTATED RINGERS 1,000 ML IV SCH (19:00)
[2019-06-13] MEDS ORDERED: ONDANSETRON 4 MG/2 ML (SDV) Z0FRAN IVP ONE (19:00)
[2019-06-13] MEDS ORDERED: fentaNYL INJECTION 100 MCG/2 ML AMP IVP ONE (19:00)
[2019-06-13 19:01] LABS: BASOPHILS % (AUTO) 0 % (0-10); EOSINOPHILS # (AUTO) 0.1 10^3/uL (0.0-0.3); EOSINOPHILS % (AUTO) 1 % (0-10); HEMATOCRIT 39 % (35-52); HEMOGLOBIN 14.1 G/DL (11.5-16.0); LYMPHOCYTES # (AUTO) 4.7 X 10^3 (1.0-4.0); LYMPHOCYTES % (AUTO) 59 % (12-44); MEAN CORPUSCULAR HEMOGLOBIN 37 PG (25-34); MEAN CORPUSCULAR HGB CONC 36 G/DL (32-36); MEAN CORPUSCULAR VOLUME 101 FL (80-99); MEAN PLATELET VOLUME 9.2 FL (7.4-10.4); MONOCYTES # (AUTO) 0.7 X 10^3 (0.0-1.0); MONOCYTES % (AUTO) 8 % (0-12); NEUTROPHILS # (AUTO) 2.5 X 10^3 (1.8-7.8); NEUTROPHILS % (AUTO) 31 % (42-75); PLATELET COUNT 258 10^3/uL (130-400); RED CELL DISTRIBUTION WIDTH 11.9 % (10.0-14.5); WHITE BLOOD COUNT 7.9 10^3/uL (4.3-11.0)
[2019-06-13 19:03] LABS: BILIRUBIN,URINE NEGATIVE (NEGATIVE); CLARITY,URINE CLEAR; COLOR,URINE YELLOW; GLUCOSE, URINE (UA) NEGATIVE (NEGATIVE); KETONES,URINE NEGATIVE (NEGATIVE); LEUKOCYTE ESTERASE ,URINE NEGATIVE (NEGATIVE); NITRITE,URINE NEGATIVE (NEGATIVE); PH,URINE 5.5 (5-9); PROTEIN,URINE NEGATIVE (NEGATIVE)
--- NOTE | 2019-06-13 19:09 | ED GI ---
General Chief Complaint: Abdominal/GI Problems Stated Complaint: NAUSEA, PAIN UPPER ABD Nursing Triage Note: PT STATES HX OF PANCREATITIS, CC OF UPPER AND LT ABD PAIN. CONSTIPATION, NAUSEA, VOMITING FOR 2 DAYS. Sepsis Screen: No Definite Risk Source of Information: Patient Exam Limitations: No Limitations History of Present Illness Date Seen by Provider: Jun 13, 2019 Time Seen by Provider: 19:08 Initial Comments To ER with epigastric abdominal pain for 2-3 days with intermittent nausea. No diarrhea. History of pancreatitis and this feels similar. She is passing gas as per usual. Timing/Duration: 1-2 Days Severity/Quality: Moderate Radiation: No Radiation Activities at Onset: None Associated Symptoms: Denies Symptoms Allergies and Home Medications Allergies Coded Allergies: clindamycin (Verified Allergy, Unknown, 05/15/19) ketorolac (Verified Allergy, Unknown, 05/15/19) Home Medications Acetaminophen 500 Mg Tablet, 1,000 MG PO Q4H PRN for PAIN-MILD, (Reported) Albuterol Sulfate 1 Puff Puff, 2 PUFF IH Q4H PRN for SHORTNESS OF BREATH, (Reported) 1 PUFF = 90 MCG Amitriptyline HCl 25 Mg Tablet, 25 MG PO HS, (Reported) Atorvastatin Calcium 40 Mg Tablet, 40 MG PO HS, (Reported) LAST FILLD #30 01-27-19 Butalb/Acetaminophen/Caffeine 1 Each Tablet, 1 TAB PO Q4H PRN for MIGRAINE, (Reported) Cetirizine HCl 10 Mg Tablet, 10 MG PO HS, (Reported) Cholecalciferol (Vitamin D3) 5,000 Unit Tablet, 5,000 UNIT PO Mo, (Reported) Diclofenac Sodium 100 Gm Gel..gram., TP TID PRN for HAND PAIN, (Reported) Fluticasone Propionate 16 Gm [place].susp, 1 SPRAY NS BID, (Reported) Fluticasone/Salmeterol 12 Gm Hfa.aer.ad, 2 PUFF IH BID@ Prescribed by: YULISSA HER on 05/16/19 1702 Gabapentin 400 Mg Capsule, 400 MG PO BID, (Reported) Insulin Glargine,Hum.rec.anlog 100 Unit/1 Ml Vial, 14 UNIT SQ HS, (Reported) Insulin Lispro 100 Unit/1 Ml Vial, 5 ML SQ TIDAC, (Reported) Lisinopril 20 Mg Tablet, 20 MG PO DAILY, (Reported) LAST FILLED #30 03-01-19 Metformin HCl 1,000 Mg Tablet, 1,000 MG PO BID, (Reported) LAST FILLED #60 03-01-19 Montelukast Sodium 10 Mg Tablet, 10 MG PO HS Prescribed by: YULISSA HER on 05/16/191701 Multivit with Calcium,Iron,Min 1 Each Tablet, 1 TAB PO DAILY, (Reported) Prednisone 20 Mg Tab, 40 MG PO DAILY@0700 Prescribed by: YULISSA HER on 05/16/191701 Venlafaxine HCl 75 Mg Cap.er.24h, 75 MG PO DAILY, (Reported) Patient Home Medication List Home Medication List Reviewed: Yes Review of Systems Review of Systems Constitutional: see HPI EENTM: No Symptoms Reported Respiratory: No Symptoms Reported Cardiovascular: No Symptoms Reported Gastrointestinal: See HPI, Abdominal Pain Genitourinary: No Symptoms Reported Musculoskeletal: no symptoms reported Skin: no symptoms reported Psychiatric/Neurological: No Symptoms Reported Endocrine: No Symptoms Reported Past Rfyseib-Hczfac-Epfrdl Hx Patient Social History Alcohol Use: Denies Use Recreational Drug Use: No Drug of Choice: MARIJUANA Smoking Status: Current Everyday Smoker Type Used: Cigarettes Recent Foreign Travel: No Contact w/Someone Who Travel: No Recent Infectious Disease Expo: No Immunizations Up To Date Tetanus Booster (TDap): Unknown PED Vaccines UTD: Yes Date of Pneumonia Vaccine: Apr 15, 2017 Past Medical History Surgeries: Yes Abdominal, Gallbladder, Tubal Ligation Respiratory: No Cardiac: Yes Atrial Fibrillation, Heart Attack, High Cholesterol, Hypertension Neurological: No : No HANDER IN History: Tubal Ligation, Menopausal Genitourinary: No Gastrointestinal: No Musculoskeletal: No Endocrine: Yes Diabetes, Insulin dep HEENT: No Cancer: Yes Liver Psychosocial: Yes Anxiety, Depression Integumentary: No Blood Disorders: Yes (Hepatitis C) Physical Exam Vital Signs Vital Signs - First Documented 06/13/19 18:06 Temp 36.7 Pulse 90 Resp 20 B/P (MAP) 129/91 (104) Pulse Ox 98 O2 Delivery Room Air Capillary Refill : Less Than 3 Seconds Height/Weight/BMI Height: '" Weight: 160lbs. oz. 72.908267dw; 28.00 BMI Method: General Appearance: WD/WN, no apparent distress Respiratory: lungs clear, normal breath sounds, no respiratory distress, no accessory muscle use Cardiovascular: regular rate, rhythm, no murmur Gastrointestinal: normal bowel sounds, soft, tenderness Extremities: normal range of motion, non-tender Neurologic/Psychiatric: alert, normal mood/affect, oriented x 3 Skin: normal color, warm/dry Exam Comments She does have a large bulge of the midline anterior abdominal wall when she goes to sit up in bed. Progress/Results/Core Measures Results/Orders Lab Results Laboratory Tests Test 06/13/19 18:53 06/13/19 18:55 Range/Units White Blood Count 7.9 4.3-11.0 10^3/uL Red Blood Count 3.86 L 4.35-5.85 10^6/uL Hemoglobin 14.1 11.5-16.0 G/DL Hematocrit 39 35-52 % Mean Corpuscular Volume 101 H 80-99 FL Mean Corpuscular Hemoglobin 37 H 25-34 PG Mean Corpuscular Hemoglobin Concent 36 32-36 G/DL Red Cell Distribution Width 11.9 10.0-14.5 % Platelet Count 258 130-400 10^3/uL Mean Platelet Volume 9.2 7.4-10.4 FL Neutrophils (%) (Auto) 31 L 42-75 % Lymphocytes (%) (Auto) 59 H 12-44 % Monocytes (%) (Auto) 8 0-12 % Eosinophils (%) (Auto) 1 0-10 % Basophils (%) (Auto) 0 0-10 % Neutrophils # (Auto) 2.5 1.8-7.8 X 10^3 Lymphocytes # (Auto) 4.7 H 1.0-4.0 X 10^3 Monocytes # (Auto) 0.7 0.0-1.0 X 10^3 Eosinophils # (Auto) 0.1 0.0-0.3 10^3/uL Basophils # (Auto) 0.0 0.0-0.1 10^3/uL Sodium Level 138 135-145 MMOL/L Potassium Level 4.2 3.6-5.0 MMOL/L Chloride Level 108 H 98-107 MMOL/L Carbon Dioxide Level 20 L 21-32 MMOL/L Anion Gap 10 5-14 MMOL/L Blood Urea Nitrogen 23 H 7-18 MG/DL Creatinine 0.97 0.60-1.30 MG/DL Estimat Glomerular Filtration Rate > 60 BUN/Creatinine Ratio 24 Glucose Level 130 H 70-105 MG/DL Calcium Level 8.9 8.5-10.1 MG/DL Corrected Calcium 8.9 8.5-10.1 MG/DL Total Bilirubin 0.2 0.1-1.0 MG/DL Aspartate Amino Transf (AST/SGOT) 14 5-34 U/L Alanine Aminotransferase (ALT/SGPT) 16 0-55 U/L Alkaline Phosphatase 60 40-136 U/L Total Protein 6.9 6.4-8.2 GM/DL Albumin 4.0 3.2-4.5 GM/DL Lipase 74 8-78 U/L Urine Color YELLOW Urine Clarity CLEAR Urine pH 5.5 5-9 Urine Specific [place] 1.015 L 1.016-1.022 Urine Protein NEGATIVE NEGATIVE Urine Glucose (UA) NEGATIVE NEGATIVE Urine Ketones NEGATIVE NEGATIVE Urine Nitrite NEGATIVE NEGATIVE Urine Bilirubin NEGATIVE NEGATIVE Urine Urobilinogen 0.2 < = 1.0 MG/DL Urine Leukocyte Esterase NEGATIVE NEGATIVE Urine RBC (Auto) NEGATIVE NEGATIVE Urine RBC NONE /HPF Urine WBC 0-2 /HPF Urine Squamous Epithelial Cells 2-5 /HPF Urine Crystals PRESENT H /LPF Urine Amorphous Sediment FEW DANY URATES H /LPF Urine Bacteria TRACE /HPF Urine Casts NONE /LPF Urine Mucus NEGATIVE /LPF Urine Culture Indicated NO My Orders Orders - FORTUNATO DUNHAM APRN Cbc With Automated Diff (06/13/19 18:55) Comprehensive Metabolic Panel (06/13/19 18:55) Lipase (06/13/19 18:55) Ed Iv/Invasive Line Start (06/13/19 18:55) Lactated Ringers (Lr 1000 Ml Iv Solution (06/13/19 19:00) Fentanyl Injection (Sublimaze Injection (06/13/19 19:00) Ondansetron Injection (Zofran Injectio (06/13/19 19:00) Antacid Suspension (Mylanta Suspension (06/13/19 19:30) Lidocaine 2% Viscous 15 Ml (Xylocaine Vi (06/13/19 19:30) Medications Given in ED Current Medications Medications Dose Ordered Sig/Maki Route Start Time Stop Time Status Last Admin Dose Admin Fentanyl Citrate 50 mcg ONCE ONCE IVP 06/13/19 19:00 06/13/19 19:01 DC 06/13/19 19:06 50 MCG Ondansetron HCl 8 mg ONCE ONCE IVP 06/13/19 19:00 06/13/19 19:01 DC 06/13/19 19:06 8 MG Vital Signs/I&O 06/13/19 18:06 Temp 36.7 Pulse 90 Resp 20 B/P (MAP) 129/91 (104) Pulse Ox 98 O2 Delivery Room Air 2 Blood Pressure Mean: 104 POS Departure Impression Primary Impression: Diastasis recti Additional Impression: Epigastric pain Disposition: HOME, SELF-CARE Condition: Stable Departure-Patient Inst. Decision time for Depature: 19:30 Referrals: HEIDI QUEEN BRETT D DO KIDO, TAKAAKI MD WILLIAMS, BENJAMEN H MD (PCP) Primary Care Physician Patient Instructions: NO INSTRUCTIONS GIVEN Add. Discharge Instructions: 1. Call surgeon of your choosing for follow-up in the next 1-2 weeks. Return to ER for any concerns. All discharge instructions reviewed with patient and/or family. Voiced understanding. FORTUNATO DUNHAM APRN Jun 13, 2019 19:09 POS
[2019-06-13 19:11] LABS: AMORPHOUS SEDIMENT,UR FEW AMOR URATES /LPF; BACTERIA,URINE TRACE /HPF; WBC,URINE 0-2 /HPF
--- NOTE | 2019-06-13 19:12 | NUR ---
Recieved report from Maggy Kiser RN
[2019-06-13 19:17] LABS: ALANINE AMINOTRANSFERASE 16 U/L (0-55); ALKALINE PHOSPHATASE 60 U/L (40-136); BILIRUBIN,TOTAL 0.2 MG/DL (0.1-1.0); BUN/CREATININE RATIO 24; CALCIUM 8.9 MG/DL (8.5-10.1); CARBON DIOXIDE 20 MMOL/L (21-32); CHLORIDE 108 MMOL/L (98-107); CREATININE SERUM 0.97 MG/DL (0.60-1.30); GFR ESTIMATED > 60; GLUCOSE 130 MG/DL (70-105); LIPASE 74 U/L (8-78); POTASSIUM 4.2 MMOL/L (3.6-5.0); SODIUM 138 MMOL/L (135-145); TOTAL PROTEIN 6.9 GM/DL (6.4-8.2)
[2019-06-13] MEDS ORDERED: LIDOCAINE 2% VISCOUS 15 ML UDC PO ONE (19:30)
[2019-06-13] MEDS ORDERED: ANTACID SUSP 30 ML UDC (MYLANTA) PO PRN (19:30)
[2019-06-13 19:35] VITALS: BP 129/91
[2019-06-13] MEDS ORDERED: HYOS0.1283 SL (19:35)
== END 2019-06-13 19:38 | disposition home or self-care (01) ==
LOC: EDUNIT# 17:41 → ER 17:43
DX: M62.08 Separation of muscle (nontraumatic), other site (principal); R10.13 Epigastric pain; I10 Essential (primary) hypertension; I25.2 Old myocardial infarction; E78.00 Pure hypercholesterolemia, unspecified; E11.9 Type 2 diabetes mellitus without complications; F41.9 Anxiety disorder, unspecified; F32.9 Major depressive disorder, single episode, unspecified; I48.91 Unspecified atrial fibrillation; B19.20 Unspecified viral hepatitis C without hepatic coma; F17.210 Nicotine dependence, cigarettes, uncomplicated; Z98.51 Tubal ligation status; Z85.05 Personal history of malignant neoplasm of liver; Z87.19 Personal history of other diseases of the digestive system; Z88.6 Allergy status to analgesic agent; Z88.1 Allergy status to other antibiotic agents; Z79.51 Long term (current) use of inhaled steroids; Z79.4 Long term (current) use of insulin
CPT/HCPCS: 36415; 80053; 81000; 83690; 84703; 85025; 96374; 96375

== ENCOUNTER 2019-07-11 05:35 | Outpatient (CLI) | payer MEDICAID ==
[~2019-07-11] VITALS: Ht 146 cm; Wt 66.4 kg
[~2019-07-11 05:35] MED LIST changes: +HYOS0.1283 SL
[2019-07-11] MEDS ORDERED: VALA1000 PO (15:54)
[2019-07-13] MEDS ORDERED: HYDR-34 PO (10:02)
== END 2019-07-11 16:02 | disposition home or self-care (01) ==
LOC: PREOP 05:35
PROVIDERS: ATTEND Surgery
DX: Z01.818 Encounter for other preprocedural examination (principal)

== ENCOUNTER 2019-07-13 08:48 | Day surgery (SDC) | payer MEDICAID ==
--- NOTE | 2019-07-05 05:21 | HISTORY AND PHYSICAL ---
DATE OF SERVICE: ATTENDING PHYSICIAN: Dr. Joshi in [place]. PROCEDURE DATE: 07/13/2019. HISTORY OF PRESENT ILLNESS: The patient is a 44-year-old female who was referred over to us for issues with abdominal pain. The patient reports for the last 3 to 4 months she has had intermittent episodes of epigastric as well as a pain near the umbilicus. She reports that she has even had occasional episodes of nausea and vomiting, especially after eating. She has reported that she does get sharp pain in the epigastric region and this is usually triggered more by spicy foods as well as acidic foods such as red sauces. She reports that she was seen in the emergency room a few days ago and x-rays were performed, which were unremarkable. She was then referred over to us. Upon further questioning, she denies any diarrhea or constipation as well as no fever or chills. She does report that at times she feels like the pain does go around towards her back and reports that she has had her gallbladder removed as well as an umbilical hernia repaired in 2011. She reports that she has never had an upper endoscopy before. PAST MEDICAL HISTORY: Diabetes, pancreatitis, rheumatoid arthritis, insomnia, asthma, genital herpes. PAST SURGICAL HISTORY: Laparoscopic cholecystectomy and umbilical hernia repair in 2011, in 1992, tubal ligation in 1997. ALLERGIES: CLINDAMYCIN, TORADOL. MEDICATIONS: Celebrex 200 mg 2 capsules b.i.d., Tylenol 500 mg 1 tablet q.6 hours p.r.n., Lantus at bedtime, Humalog before meals, amitriptyline 25 mg at bedtime, valacyclovir 1 gram b.i.d., albuterol 90 mcg inhaler 2 puffs q.4-6 hours p.r.n. SOCIAL HISTORY: Positive for smoke half pack per day for 20 years. Negative for alcohol. FAMILY HISTORY: Mother diabetes, stroke, hypertension. Father, diabetes, myocardial infarction, hypertension. VITAL SIGNS: Blood pressure 110/70. Current weight is 150.6 at 4 feet 9 inches. REVIEW OF SYSTEMS: This is a well-nourished female, in no acute distress. She is not experiencing any shortness of breath or difficulty breathing. No chest pain, palpitations or diaphoresis. She does report occasional episodes of nausea and vomiting as well as epigastric pain and pain around the umbilicus. She denies any diarrhea or constipation. No red blood per rectum. No dark tarry stools. No fever or chills. No recent inadvertent weight loss. All other review of systems negative. PHYSICAL EXAMINATION: CHEST: Clear. Good breath sounds bilaterally. HEART: Regular, no murmurs. EXTREMITIES: No lower extremity edema. Negative Homans sign. HEENT: No scleral icterus. NECK: No cervical lymphadenopathy. ABDOMEN: Soft, nondistended. There is some tenderness with deep palpation in epigastric region. There is also an incisional hernia noted just in the supraumbilical region. This is tender to palpation; however, reducible. There are no palpable masses. No organomegaly. SKIN: Warm, dry and pink. NEUROLOGIC: Awake, alert, oriented x3. ASSESSMENT AND PLAN: A 44-year-old female with a symptomatic gastroesophageal reflux disease as well as a symptomatic incisional hernia. At this time, we will recommend proceeding with an incisional hernia repair with mesh as well as an EGD. Risks and benefits of the procedure as well as the procedure and home care instructions were explained to the patient. The patient verbalized understanding of instructions and agrees to proceed as planned. At this time, we will proceed with scheduling the patient for the incisional hernia repair with mesh as well as EGD. Job ID: [id number] DocumentID: [id number] Dictated Date: 07/03/2019 18:11:52 Gospel Worker Date: 07/03/2019 19:38:45 Dictated By: JACQUI ROSARIO APRN
[2019-07-13] VITALS (12 sets, daily range): BP systolic 103–179; BP diastolic 91–108
[~2019-07-13] VITALS: Ht 146 cm; Wt 66.4 kg
[~2019-07-13 08:48] MED LIST changes: +VALA1000 PO
[2019-07-13] MEDS ORDERED: LACTATED RINGERS 1,000 ML IV PRN (09:03)
[2019-07-13] MEDS ORDERED: ceFAZolin 2 GM/50 ML NS 50 ML IV ONE (09:15)
[2019-07-13] MEDS ORDERED: ASPI-999 PO (09:44)
[2019-07-13] MEDS ORDERED: BUP/EPI 0.5% 1:200,000 (SENSORCAINE) 30 ML VIAL ONE (09:52)
[2019-07-13] MEDS ORDERED: morphine INJ 10 MG/ML 1ML (SYR OR VIAL) IVP PRN ×2 (10:00)
[2019-07-13] MEDS ORDERED: HYDROcodone/APAP 5 MG/325 MG (LORTAB) TAB PO PRN (10:00)
[2019-07-13] MEDS ORDERED: ACETAMINOPHEN 325 MG TABLET PO PRN (10:00)
[2019-07-13] MEDS ORDERED: ONDANSETRON 4 MG/2 ML (SDV) Z0FRAN IVP PRN ×2 (10:00→11:45)
--- NOTE | 2019-07-13 10:00 | Progress Note-Pre Operative ---
Pre-Operative Progress Note H&P Reviewed The H&P was reviewed, patient examined and no changes noted. Date Seen by Provider: Jul 13, 2019 Time Seen by Provider: 09:00 Date H&P Reviewed: Jul 13, 2019 Time H&P Reviewed: 09:00 Pre-Operative Diagnosis: ventral abd inc hernia, GERD JESSEE SIMS MD Jul 13, 2019 10:00
[2019-07-13] MEDS ORDERED: HYDR-34 PO (10:02)
--- NOTE | 2019-07-13 10:03 | Discharge Inst-Surgical ---
D/C Lap Instructions-BETHANY New, Converted, or Re-Newed RX: RX on Chart Follow Up Appt in 2 weeks Activity as tolerated No driving for 24 hours No driving while on pain medications Incentive Spirometry use every 2 hours while awake Regular Diet Symptoms to Report: Fever over 101 degree F, Nausea/Vomiting Infection Signs and Symptoms to report: Increased redness, Foul odor of wound, Increased drainage Bathing instructions: May shower Operative Area Clean/Dry; Keep incision clean/dry If any problems/questions: Contact your physician or go to Emergency Room JESSEE SIMS MD Jul 13, 2019 10:03
[2019-07-13] MEDS ORDERED: ROCURONIUM 50 MG/5 ML (ZEMURON) VIAL IV ONE (10:04)
[2019-07-13] MEDS ORDERED: proPOfol 200 MG/20 ML (DIPRIVAN) VIAL IV ONE (10:04)
[2019-07-13] MEDS ORDERED: SEVOFLURANE (ULTANE) 15 ML INHAL SOLN ONE ×3 (10:04→11:24)
[2019-07-13] MEDS ORDERED: LIDOCAINE PF 2% 5 ML (XYLOCAINE) VIAL ONE (10:04)
[2019-07-13] MEDS ORDERED: ONDANSETRON 4 MG/2 ML (SDV) Z0FRAN ONE (10:04)
[2019-07-13] MEDS ORDERED: MIDAZOLAM 2 MG/2 ML (VERSED) VIAL ONE (10:05)
[2019-07-13] MEDS ORDERED: fentaNYL INJECTION 100 MCG/2 ML AMP ONE (10:05)
[2019-07-13] MEDS ORDERED: HYDROmorphone 2 MG/ML VIAL (DILAUDID) IV ONE (11:45)
[2019-07-13] MEDS ORDERED: morphine INJ 10 MG/ML 1ML (SYR OR VIAL) IVP ONE (11:45)
[2019-07-13] MEDS ORDERED: MEPERIDINE (DEMEROL) INJ 50 MG/ML IVP ONE (11:45)
[2019-07-13] MEDS: LABETALOL HCL 100 MG/20 ML VIAL IV PRN ×4 (11:47→12:20)
[2019-07-13] MEDS: LABETALOL HCL 20 MG/4 ML VIAL ONE ×2 (11:47→14:07)
--- NOTE | 2019-07-13 12:29 | Progress Note-Post Operative ---
Post-Operative Progess Note Surgeon (s)/Electrical Logger (s) Surgeon JESSEE SIMS MD Electrical Logger: [address] PRODUCTION GENERAL MANAGER Pre-Operative Diagnosis ventral abd inc hernia, GERD Post-Operative Diagnosis symptomatic diastasis recti, no recurrent hernias. reflux esophagitis(stage 2), small-moderate HH(2.5cm), moderate gastritis. Procedure & Operative Findings Date of Procedure 07/13/19 Procedure Performed/Findings fascial separation and and closure, repair supraumbilical diastasis recti Anesthesia Type general LMA Estimated Blood Loss Estimated blood loss (mL): minimal Specimens/Packing Specimens Removed ge jxn, antrum JESSEE SIMS MD Jul 13, 2019 12:29
--- NOTE | 2019-07-13 21:35 | OPERATIVE REPORT ---
DATE OF SERVICE: 07/13/2019 ATTENDING PHYSICIAN: Dr. Audrey Joshi in [place], [place]. PREOPERATIVE DIAGNOSES: Recurrent ventral abdominal incisional hernia, gastroesophageal reflux disease. POSTOPERATIVE DIAGNOSES: Symptomatic diastasis recti, reflux esophagitis stage II, small to moderate size hiatal hernia approximately 2.5 cm in size, moderate severity gastritis. PROCEDURE: 1. Open repair of supraumbilical diastasis recti. 2. EGD with biopsy. SURGEON: Jessee Sims MD. STRETCH PRESS OPERATOR: Olman Santo APRN. ANESTHESIA: General laryngeal mask airway. ESTIMATED BLOOD LOSS: Minimal. FINDINGS: Symptomatic diastasis recti, reflux esophagitis stage II, small to moderate size hiatal hernia approximately 2.5 cm in size, moderate severity gastritis. DISPOSITION: The patient tolerated the procedure well. INDICATIONS: The patient is a 44-year-old female referred over to us for pain in the periumbilical as well as supraumbilical region. Upon examination in the office, it appeared that she did have a recurrent ventral abdominal incisional hernia, which was tender to palpation. She has had a previous laparoscopic tubal ligation as well as cholecystectomy and then did develop an incisional hernia, which was repaired by mesh and now we felt that she had a reoccurrence. She also has a history of gastroesophageal reflux disease for several years and this has worsened in the past as well. She does have risk factors including taking insignificant amounts of caffeinated beverages as well as smoking. DESCRIPTION OF PROCEDURE: The patient was brought to the operating room, laid supine on the table. After adequate IV pain and sedative medications and general laryngeal mask airway intubation, the abdomen was prepped and draped in standard surgical fashion. A 0.5% Marcaine with epinephrine was then used to anesthetize the overlying skin. An area in the epigastric region was then anesthetized using 0.5% Marcaine with epinephrine and a vertical skin incision made using a 15 blade. Subcutaneous tissue was then dissected using electrocautery. We then proceeded with a gentle dissection around the periumbilical region; however, it appeared that there was no recurrent hiatal hernia. There was a significant diastasis recti identified. We then extended the excision superiorly after the skin was anesthetized using 0.5% Marcaine with epinephrine. The subcutaneous tissue was then opened using electrocautery. We then proceeded to dissect a plane between the subcutaneous tissue and the anterior rectus sheath along the medial edges of the rectus abdominis muscle using electrocautery bilaterally. Good hemostasis was observed. We then proceeded to approximate the two edges of the rectus abdominis together using Dylan clamps. We then proceeded with approximating the fascia in a systematic fashion using 0 Prolene interrupted sutures midline along the entirety of the anterior fascia until the fascial edges were approximated. Good hemostasis was observed. The subcutaneous tissue was then reapproximated using 3-0 Vicryl interrupted sutures. Skin was closed using 4-0 Monocryl running subcuticular suture. Wound was then cleaned and covered with Dermabond. Under the same anesthesia, we then proceeded with the EGD portion of the procedure. The endoscope was placed in the mouth, visualizing the pharynx and hypopharyngeal region. Vocal cords, epiglottis and vallecula identified and appeared to be normal. The endoscope was then gently intubated into the esophageal opening and esophagus insufflated. The endoscope was then advanced through the first, second and third portion of the esophagus at the level of the GE junction, a reflux esophagitis stage II identified. No ulcers or strictures identified in this region. A biopsy was taken with forceps with visualization of good hemostasis. The endoscope was then advanced in the stomach and endoscope retroflexed, visualizing a small to moderate size hiatal hernia approximately 2.5 cm in size. There was moderate severity gastritis. No formal ulcerations, polyps, or any neoplasms identified throughout the stomach. A biopsy was taken of the antrum to rule out H. pylori with visualization of good hemostasis. Endoscope was then advanced to the pylorus and the first and second portion of the duodenum, which appeared normal with no distal obstructions. The endoscope was then slowly withdrawn while taking a second look and suctioning of residual air with no additional findings. The patient tolerated the procedure well. We will start IV and oral pain medication as well as a clear liquid diet. Once she is tolerating clears, has good pain control with oral pain medication and is ambulating well, we will discharge her home. She will also need to wear her abdominal binder for the next six weeks and only take off when she showers. We will also recommend the necessary diet and lifestyle accommodation for reflux esophagitis and hiatal hernia as well as gastritis including stop smoking as well as moderation of caffeinated beverages, spicy, greasy and acidic foods as well as take in small and more frequent meals, avoiding eating at night. We will also start her on Protonix 40 mg daily. Job ID: [id number] DocumentID: [id number] Dictated Date: 07/13/2019 11:54:34 Steam Presser Date: 07/13/2019 21:34:41 Dictated By: JESSEE SIMS MD
== END 2019-07-13 14:00 | disposition home or self-care (01) ==
LOC: SDC 08:48
PROVIDERS: ATTEND Surgery
DX: K21.0 Gastro-esophageal reflux disease with esophagitis (principal); K44.9 Diaphragmatic hernia without obstruction or gangrene; K29.70 Gastritis, unspecified, without bleeding; K31.89 Other diseases of stomach and duodenum; Q79.59 Other congenital malformations of abdominal wall; Z11.2 Encounter for screening for other bacterial diseases; E11.9 Type 2 diabetes mellitus without complications; M06.9 Rheumatoid arthritis, unspecified; G47.00 Insomnia, unspecified; J44.9 Chronic obstructive pulmonary disease, unspecified; A60.09 Herpesviral infection of other urogenital tract; F17.210 Nicotine dependence, cigarettes, uncomplicated; F32.9 Major depressive disorder, single episode, unspecified; I48.91 Unspecified atrial fibrillation; I10 Essential (primary) hypertension; Z79.4 Long term (current) use of insulin; Z79.899 Other long term (current) drug therapy
CPT/HCPCS: 82962; 84703; 87081; 88305

== ENCOUNTER 2019-07-17 21:05 | Emergency (ER) | payer MEDICAID ==
[~2019-07-17] VITALS: Ht 146 cm; Wt 68.0 kg
[~2019-07-17 21:05] MED LIST changes: +ASPI-999 PO
[2019-07-17 21:44] LABS: BASOPHILS % (AUTO) 1 % (0-10); EOSINOPHILS # (AUTO) 0.2 10^3/uL (0.0-0.3); EOSINOPHILS % (AUTO) 3 % (0-10); HEMATOCRIT 35 % (35-52); HEMOGLOBIN 12.5 G/DL (11.5-16.0); LYMPHOCYTES # (AUTO) 3.4 X 10^3 (1.0-4.0); LYMPHOCYTES % (AUTO) 52 % (12-44); MEAN CORPUSCULAR HEMOGLOBIN 36 PG (25-34); MEAN CORPUSCULAR HGB CONC 36 G/DL (32-36); MEAN CORPUSCULAR VOLUME 102 FL (80-99); MEAN PLATELET VOLUME 9.3 FL (7.4-10.4); MONOCYTES # (AUTO) 0.4 X 10^3 (0.0-1.0); MONOCYTES % (AUTO) 7 % (0-12); NEUTROPHILS # (AUTO) 2.5 X 10^3 (1.8-7.8); NEUTROPHILS % (AUTO) 39 % (42-75); PLATELET COUNT 250 10^3/uL (130-400); RED CELL DISTRIBUTION WIDTH 12.6 % (10.0-14.5); WHITE BLOOD COUNT 6.5 10^3/uL (4.3-11.0)
[2019-07-17 21:59] LABS: CLARITY,URINE CLEAR; COLOR,URINE DARK YELLOW; GLUCOSE, URINE (UA) 1+ (NEGATIVE); KETONES,URINE NEGATIVE (NEGATIVE); LEUKOCYTE ESTERASE ,URINE NEGATIVE (NEGATIVE); NITRITE,URINE NEGATIVE (NEGATIVE); PROTEIN,URINE 1+ (NEGATIVE)
[2019-07-17 22:00] LABS: ALANINE AMINOTRANSFERASE 8 U/L (0-55); ALBUMIN 3.6 GM/DL (3.2-4.5); ALKALINE PHOSPHATASE 74 U/L (40-136); AMYLASE 80 U/L (25-125); BILIRUBIN,TOTAL 0.1 MG/DL (0.1-1.0); BUN/CREATININE RATIO 14; CALCIUM 8.5 MG/DL (8.5-10.1); CARBON DIOXIDE 20 MMOL/L (21-32); CHLORIDE 107 MMOL/L (98-107); GFR ESTIMATED > 60; GLUCOSE 262 MG/DL (70-105); LIPASE 39 U/L (8-78); POTASSIUM 3.9 MMOL/L (3.6-5.0); SODIUM 136 MMOL/L (135-145); TOTAL PROTEIN 6.3 GM/DL (6.4-8.2)
[2019-07-17] MEDS ORDERED: NS IV 1000 ML 1,000 ML IV SCH (22:01)
[2019-07-17 22:13] LABS: AMPHETAMINE SCREEN, URINE NEGATIVE (NEGATIVE); BARBITURATE SCREEN URINE POSITIVE (NEGATIVE); BENZODIAZEPINES SCREEN URINE POSITIVE (NEGATIVE); CANNABINOID SCREEN, URINE NEGATIVE (NEGATIVE); COCAINE SCREEN URINE NEGATIVE (NEGATIVE); METHADONE STAT NEGATIVE (NEGATIVE); METHAMPHETAMINE SCREEN URINE S NEGATIVE (NEGATIVE); OPIATE SCREEN URINE POSITIVE (NEGATIVE); OXYCODONE STAT NEGATIVE (NEGATIVE); PROPOXYPHENE STAT NEGATIVE (NEGATIVE); TRICYCLIC ANTIDEPRESSANTS SCRE POSITIVE (NEGATIVE)
[2019-07-17 22:17] LABS: BILIRUBIN,URINE 1+ (NEGATIVE)
[2019-07-17 22:19] LABS: BACTERIA,URINE MODERATE /HPF; SQUAMOUS EPITHELIAL CELL,UR 0-2 /HPF; WBC,URINE RARE /HPF
[2019-07-17] MEDS ORDERED: NS 100 ML (IVPB) BAG IV ONE (23:00)
[2019-07-17] MEDS ORDERED: HOLD METFORMIN - RECEIVED CONTRAST 20 ML VIAL IV SCH (23:00)
[2019-07-17] MEDS ORDERED: IOHEXOL 350 MG/ML 100 ML (OMNIPAQUE 350) VIAL IV ONE (23:00)
[2019-07-17] MEDS ORDERED: ONDANSETRON 4 MG/2 ML (SDV) Z0FRAN IVP ONE (23:15)
[2019-07-18] MEDS ORDERED: HYOS0.1283 SL (00:03)
[2019-07-18] MEDS ORDERED: DICY20TA10 PO (00:03)
--- NOTE | 2019-07-18 00:03 | ED Abdominal Pain ---
General Chief Complaint: Abdominal/GI Problems Stated Complaint: ABD PAIN Nursing Triage Note: TO ED ROOM 7 FROM [facility] WITH C/O LUQ. P/O HERNIA REPAIR 07/13/[address] SIMS. Sepsis Screen: No Definite Risk Allergies and Home Medications Allergies Coded Allergies: clindamycin (Verified Allergy, Unknown, 05/15/19) ketorolac (Verified Allergy, Unknown, 05/15/19) Home Medications Amitriptyline HCl 25 Mg Tablet, 25 MG PO HS, (Reported) Aspirin 81 Mg Tab.chew, 81 MG PO DAILY, (Reported) Hydrocodone Bit/Acetaminophen 1 Ea Tablet, 1 EACH PO Q4H PRN for PAIN-MODERATE Prescribed by: JESSEE SIMS on 07/13/19 1002 Insulin Glargine,Hum.rec.anlog 100 Unit/1 Ml Vial, 14 UNIT SQ HS, (Reported) Insulin Lispro 100 Unit/1 Ml Vial, 5 UNIT SQ TIDAC, (Reported) Valacyclovir HCl 1,000 Mg Tablet, 1,000 MG PO BID, (Reported) Past Jmaigxj-Doimks-Jsftwj Hx Patient Social History Alcohol Use: Denies Use Recreational Drug Use: Yes Drug of Choice: MARIJUANA Type Used: Cigarettes 2nd Hand Smoke Exposure: Yes Recent Foreign Travel: No Contact w/Someone Who Travel: No Recent Infectious Disease Expo: No Recent Hopitalizations: Yes (HERNIA REPAIR 07/13/19) Physical Abuse: No Sexual Abuse: No Mistreated: No Fear: No Immunizations Up To Date Tetanus Booster (TDap): Less than 5yrs PED Vaccines UTD: Yes Date of Pneumonia Vaccine: Apr 25, 2019 Date of Influenza Vaccine: Apr 25, 2019 Seasonal Allergies Seasonal Allergies: No Past Medical History Surgeries: Yes Section, Gallbladder, Tubal Ligation Respiratory: Yes Asthma, COPD Cardiac: Yes Atrial Fibrillation, High Cholesterol, Hypertension 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 oz. 72.621297qd; 31.00 BMI Method: Progress/Results/Core Measures Results/Orders Lab Results Laboratory Tests Test 07/17/19 21:35 07/17/19 21:50 Range/Units White Blood Count 6.5 4.3-11.0 10^3/uL Red Blood Count 3.44 L 4.35-5.85 10^6/uL Hemoglobin 12.5 11.5-16.0 G/DL Hematocrit 35 35-52 % Mean Corpuscular Volume 102 H 80-99 FL Mean Corpuscular Hemoglobin 36 H 25-34 PG Mean Corpuscular Hemoglobin Concent 36 32-36 G/DL Red Cell Distribution Width 12.6 10.0-14.5 % Platelet Count 250 130-400 10^3/uL Mean Platelet Volume 9.3 7.4-10.4 FL Neutrophils (%) (Auto) 39 L 42-75 % Lymphocytes (%) (Auto) 52 H 12-44 % Monocytes (%) (Auto) 7 0-12 % Eosinophils (%) (Auto) 3 0-10 % Basophils (%) (Auto) 1 0-10 % Neutrophils # (Auto) 2.5 1.8-7.8 X 10^3 Lymphocytes # (Auto) 3.4 1.0-4.0 X 10^3 Monocytes # (Auto) 0.4 0.0-1.0 X 10^3 Eosinophils # (Auto) 0.2 0.0-0.3 10^3/uL Basophils # (Auto) 0.0 0.0-0.1 10^3/uL Sodium Level 136 135-145 MMOL/L Potassium Level 3.9 3.6-5.0 MMOL/L Chloride Level 107 98-107 MMOL/L Carbon Dioxide Level 20 L 21-32 MMOL/L Anion Gap 9 5-14 MMOL/L Blood Urea Nitrogen 11 7-18 MG/DL Creatinine 0.80 0.60-1.30 MG/DL Estimat Glomerular Filtration Rate > 60 BUN/Creatinine Ratio 14 Glucose Level 262 H 70-105 MG/DL Calcium Level 8.5 8.5-10.1 MG/DL Corrected Calcium 8.8 8.5-10.1 MG/DL Total Bilirubin 0.1 0.1-1.0 MG/DL Aspartate Amino Transf (AST/SGOT) 9 5-34 U/L Alanine Aminotransferase (ALT/SGPT) 8 0-55 U/L Alkaline Phosphatase 74 40-136 U/L Total Protein 6.3 L 6.4-8.2 GM/DL Albumin 3.6 3.2-4.5 GM/DL Amylase Level 80 25-125 U/L Lipase 39 8-78 U/L Serum Test, Qualitative NEGATIVE NEGATIVE Serum Alcohol < 10 <10 MG/DL Urine Color DARK YELLOW Urine Clarity CLEAR Urine pH 5.0 5-9 Urine Specific [place] >=1.030 1.016-1.022 Urine Protein 1+ H NEGATIVE Urine Glucose (UA) 1+ H NEGATIVE Urine Ketones NEGATIVE NEGATIVE Urine Nitrite NEGATIVE NEGATIVE Urine Bilirubin 1+ H NEGATIVE Urine Urobilinogen 0.2 < = 1.0 MG/DL Urine Leukocyte Esterase NEGATIVE NEGATIVE Urine RBC (Auto) NEGATIVE NEGATIVE Urine RBC NONE /HPF Urine WBC RARE /HPF Urine Squamous Epithelial Cells 0-2 /HPF Urine Crystals NONE /LPF Urine Bacteria MODERATE H /HPF Urine Casts NONE /LPF Urine Mucus NEGATIVE /LPF Urine Culture Indicated YES Urine Opiates Screen POSITIVE H NEGATIVE Urine Oxycodone Screen NEGATIVE NEGATIVE Urine Methadone Screen NEGATIVE NEGATIVE Urine Propoxyphene Screen NEGATIVE NEGATIVE Urine Barbiturates Screen POSITIVE H NEGATIVE Ur Tricyclic Antidepressants Screen POSITIVE H NEGATIVE Urine Phencyclidine Screen NEGATIVE NEGATIVE Urine Amphetamines Screen NEGATIVE NEGATIVE Urine Methamphetamines Screen NEGATIVE NEGATIVE Urine Benzodiazepines Screen POSITIVE H NEGATIVE Urine Cocaine Screen NEGATIVE NEGATIVE Urine Cannabinoids Screen NEGATIVE NEGATIVE My Orders Orders - HERNANDEZ CALLES DO Ed Iv/Invasive Line Start (07/17/19 21:39) Alcohol (07/17/19 21:39) Amylase (07/17/19 21:39) Cbc With Automated Diff (07/17/19 21:39) Comprehensive Metabolic Panel (07/17/19 21:39) Drug Screen Stat (Urine) (07/17/19 21:39) Hcg,Qualitative Serum (07/17/19 21:39) Lipase (07/17/19 21:39) Ua Culture If Indicated (07/17/19 21:39) Ct Abdomen/Pelvis W (07/17/19 22:01) Acute Abd Series (07/17/19 22:01) Ed Iv/Invasive Line Start (07/17/19 22:01) Ns Iv 1000 Ml (Sodium Chloride 0.9%) (07/17/19 22:01) Urine Culture (07/17/19 21:50) Iohexol Injection (Omnipaque 350 Mg/Ml 1 (07/17/19 23:00) Received Contrast (Hold Metformin- Contr (07/17/19 23:00) Ns (Ivpb) (Sodium Chloride 0.9% Ivpb Bag (07/17/19 23:00) Ondansetron Injection (Zofran Injectio (07/17/19 23:15) Medications Given in ED Current Medications Medications Dose Ordered Sig/Maki Route Start Time Stop Time Status Last Admin Dose Admin Iohexol 100 ml ONCE ONCE IV 07/17/19 23:00 07/17/19 23:01 DC 07/17/19 22:49 100 ML Ondansetron HCl 4 mg ONCE ONCE IVP 07/17/19 23:15 07/17/19 23:16 DC 07/17/19 23:24 4 MG Sodium Chloride 100 ml ONCE ONCE IV 07/17/19 23:00 07/17/19 23:01 DC 07/17/19 22:49 80 ML Vital Signs/I&O 07/17/19 21:05 Temp 36.7 Pulse 88 Resp 18 B/P (MAP) 149/101 (117) O2 Delivery Room Air Blood Pressure Mean: 117 Departure Impression Primary Impression: Post-op pain Additional Impressions: INTESTINAL GAS Constipation Disposition: 01 HOME, SELF-CARE Condition: Improved Departure-Patient Inst. Referrals: JESSEE SIMS MD, BENJAMEN H MD (PCP) Primary Care Physician Patient Instructions: Constipation, Adult (DC), Gas and Bloating, Postoperative Pain (DC) Add. Discharge Instructions: CLEAR LIQUIDS--WATER, BROTH, JELLO, GATORADE NO FOOD UNTIL YOUR PAIN IS GONE AND YOUR BOWELS HAVE MOVED. TAKE MIRALAX THREE TIMES A DAY UNTIL YOUR STOOLS ARE CLEARED FOLLOW UP WITH DR. SIMS THIS WEEK FOR FURTHER CARE All discharge instructions reviewed with patient and/or family. Voiced understanding. Scripts Dicyclomine HCl (Dicyclomine HCl) 20 Mg Tablet 20 MG PO Q6H for Abdominal Pain, #20 TAB Prov: HERNANDEZ CALLES DO 07/18/19 Hyoscyamine Sulfate (Levsin-Sl) 0.125 Mg Tab.subl 1-2 TAB SL Q4H for Abdominal Pain, #15 TAB Prov: HERNANDEZ CALLES DO 07/18/19 HERNANDEZ CALLES DO Jul 18, 2019 00:03
[2019-07-18] MEDS ORDERED: DICYCLOMINE 10 MG (BENTYL) CAP PO SCH (00:15)
[2019-07-18] MEDS ORDERED: HYOSCYAMINE 0.125 MG (LEVSIN) TAB PO ONE (00:15)
[2019-07-18 00:26] VITALS: BP 145/99
--- NOTE | 2019-07-18 06:53 | Diagnostic Imaging Report ---
INDICATION: Generalized abdominal pain COMPARISON: None. FINDINGS: Acute abdominal series demonstrates clear lungs bilaterally. There is no free air under the diaphragm. Bowel gas pattern is nondistended. There is no significant constipation. No free air is seen. Cholecystectomy clips are present. Osseous structures are age-appropriate. IMPRESSION: Negative acute abdominal series. Dictated by: Dictated on workstation # [id number]
--- NOTE | 2019-07-18 07:41 | Diagnostic Imaging Report ---
PROCEDURE: CT abdomen and pelvis with contrast. TECHNIQUE: Multiple contiguous axial images were obtained through the abdomen and pelvis after administration of intravenous contrast. Auto Exposure Controls were utilized during the CT exam to meet ALARA standards for radiation dose reduction. INDICATION: Abdominal pain and recent hernia repair. COMPARISON: None. FINDINGS: There is a fluid collection containing gas within subcutaneous tissues of the anterior abdominal wall measuring approximately 10 x 1.8 x 8.5 cm. This may represent an abscess or hematoma. The anterior abdominal wall is otherwise intact. No recurrent hernia seen. The lung bases are clear. The gallbladder is surgically absent. Solid organs, vascular structures and small bowel are unremarkable. There is some mild constipation throughout the colon. Reproductive organs are intact. Distal ureters and urinary bladder are normal. Osseous structures are age-appropriate. IMPRESSION: 1. Anterior abdominal wall fluid collection containing gas concerning for an abscess. Postoperative hematoma not excluded. 2. No recurrent hernia. 3. Constipation without obstruction. Agree with preliminary report. Dictated by: Dictated on workstation # [id number]
== END 2019-07-18 00:30 | disposition home or self-care (01) ==
LOC: ER 21:05 → EDUNIT# 21:05 → ER 07-18 00:30
DX: G89.18 Other acute postprocedural pain (principal); R14.0 Abdominal distension (gaseous); K59.00 Constipation, unspecified; J44.9 Chronic obstructive pulmonary disease, unspecified; I10 Essential (primary) hypertension; E11.9 Type 2 diabetes mellitus without complications; E78.00 Pure hypercholesterolemia, unspecified; I48.91 Unspecified atrial fibrillation; F41.9 Anxiety disorder, unspecified; F32.9 Major depressive disorder, single episode, unspecified; B19.20 Unspecified viral hepatitis C without hepatic coma; M06.9 Rheumatoid arthritis, unspecified; Z85.05 Personal history of malignant neoplasm of liver; Z88.1 Allergy status to other antibiotic agents; Z88.6 Allergy status to analgesic agent; Z79.82 Long term (current) use of aspirin; Z79.4 Long term (current) use of insulin; Z77.22 Contact with and (suspected) exposure to environmental tobacco smoke (acute) (chronic); Z98.51 Tubal ligation status
CPT/HCPCS: 36415; 74022; 74177; 80053; 80306; 80320; 81000; 82150; 83690; 84703; 85025; 87077; 87088; 96361; 96374

== ENCOUNTER 2020-08-26 21:59 | Observation (INO) | payer MEDICAID ==
[~2020-08-26] VITALS: Ht 143 cm; Wt 68.1 kg
[~2020-08-26 21:59] MED LIST changes: -CETI10TA20 PO; +CETI10TA49 PO; +DICY20TA10 PO; -MONT10TA24 PO; +MONT10TA97 PO; -VALA1000 PO; +VALA10007 PO
[2020-08-26] MEDS ORDERED: FAMOTIDINE 20MG/2ML IV (PEPCID) IVP ONE (22:30)
[2020-08-26] MEDS ORDERED: fentaNYL INJECTION 100 MCG/2 ML AMP IVP ONE ×2 (22:30→23:30)
[2020-08-26] MEDS ORDERED: LACTATED RINGERS 1,000 ML IV ONE (22:30)
[2020-08-26] MEDS ORDERED: ONDANSETRON 4 MG/2 ML (SDV) Z0FRAN IVP ONE (22:30)
[2020-08-26 22:39] LABS: BASOPHILS % (AUTO) 0 % (0-10); EOSINOPHILS # (AUTO) 0.1 10^3/uL (0.0-0.3); EOSINOPHILS % (AUTO) 2 % (0-10); HEMATOCRIT 44 % (35-52); HEMOGLOBIN 15.1 g/dL (11.5-16.0); LYMPHOCYTES # (AUTO) 4.1 10^3/uL (1.0-4.0); LYMPHOCYTES % (AUTO) 49 % (12-44); MEAN CORPUSCULAR HEMOGLOBIN 36 pg (25-34); MEAN CORPUSCULAR HGB CONC 34 g/dL (32-36); MEAN CORPUSCULAR VOLUME 104 fL (80-99); MEAN PLATELET VOLUME 9.3 fL (9.0-12.2); MONOCYTES # (AUTO) 0.5 10^3/uL (0.0-1.0); MONOCYTES % (AUTO) 6 % (0-12); NEUTROPHILS # (AUTO) 3.6 10^3/uL (1.8-7.8); NEUTROPHILS % (AUTO) 43 % (42-75); PLATELET COUNT 347 10^3/uL (130-400); WHITE BLOOD COUNT 8.5 10^3/uL (4.3-11.0)
--- NOTE | 2020-08-26 22:47 | NUR ---
ATTEMPTED TO CALL PTS SPOUSE AT THIS TIME TO INFORM HIM HE COULD COME BACK A VISITOR. SPOUSE DID NOT ANSWER HIS PHONE.
[2020-08-26 22:50] LABS: CHLORIDE 103 MMOL/L (98-107); POTASSIUM 4.2 MMOL/L (3.6-5.0); SODIUM 138 MMOL/L (135-145)
[2020-08-26 22:51] LABS: CALCIUM 9.1 MG/DL (8.5-10.1)
[2020-08-26 22:52] LABS: GLUCOSE 269 MG/DL (70-105); TOTAL PROTEIN 7.7 GM/DL (6.4-8.2)
[2020-08-26 22:53] LABS: CARBON DIOXIDE 22 MMOL/L (21-32)
[2020-08-26 22:53] LABS: BILIRUBIN,URINE NEGATIVE (NEGATIVE); COLOR,URINE YELLOW; GLUCOSE, URINE (UA) 2+ (NEGATIVE); KETONES,URINE NEGATIVE (NEGATIVE); LEUKOCYTE ESTERASE ,URINE NEGATIVE (NEGATIVE); NITRITE,URINE NEGATIVE (NEGATIVE); PH,URINE 7.5 (5-9); PROTEIN,URINE 2+ (NEGATIVE)
[2020-08-26 22:54] LABS: BILIRUBIN,TOTAL 0.2 MG/DL (0.1-1.0)
[2020-08-26 22:56] LABS: ALKALINE PHOSPHATASE 80 U/L (40-136); CREATININE SERUM 0.83 MG/DL (0.60-1.30); GFR ESTIMATED > 60
[2020-08-26 22:57] LABS: BUN/CREATININE RATIO 13
[2020-08-26 22:58] LABS: CLARITY,URINE SL CLOUDY
[2020-08-26 22:59] LABS: ALANINE AMINOTRANSFERASE 6 U/L (0-55); LIPASE 41 U/L (8-78)
[2020-08-26 23:00] LABS: BACTERIA,URINE TRACE /HPF; RBC,URINE 0-2 /HPF
[2020-08-26] MEDS ORDERED: ANTACID SUSP 30 ML UDC (MYLANTA) PO ONE (23:15)
[2020-08-26] MEDS ORDERED: LIDOCAINE 2% VISCOUS 15 ML UDC PO ONE (23:15)
[2020-08-27] VITALS (7 sets, daily range): BP systolic 132–170; BP diastolic 77–95
[2020-08-27] MEDS ORDERED: HOLD METFORMIN - RECEIVED CONTRAST 20 ML VIAL IV SCH
[2020-08-27] MEDS ORDERED: IOHEXOL 350 MG/ML 100 ML (OMNIPAQUE 350) VIAL IV ONE
[2020-08-27] MEDS ORDERED: CATHETER FLUSH 10 ML SYR IV PRN
[2020-08-27] MEDS ORDERED: NS 100 ML (IVPB) BAG IV ONE
[2020-08-27] MEDS ORDERED: morphine INJ 10 MG/ML 1ML (SYR OR VIAL) IVP STA (00:58)
[2020-08-27] MEDS ORDERED: PROMETHAZINE INJ 25 MG/ML (PHENERGAN) AMP IVP ONE (01:00)
[2020-08-27] MEDS ORDERED: NS IV 500 ML 500 ML IV ONE (01:00)
--- NOTE | 2020-08-27 01:32 | ED Abdominal Pain ---
General Chief Complaint: Abdominal/GI Problems Stated Complaint: ABD PAIN Nursing Triage Note: PT AMBULATE TO ROOM 06 WITH C/O LEFT SIDED ABD PAIN X7 DAYS. PT REPORTS TAKING DILCIAColeman THAKURER, CARAFATE, AND HER HUSBANDS OXYCODONE FOR THE PAIN WITHOUT RELIEF. PT REPORTS SHE SEEN HER PCP X7 DAYS AGO AND WAS GIVEN MEDICATION AND SHE HAS PICKED UP THE PRESCRIPTIONS. PT STATES THAT SHE "IS PROBABLY GETTING THE PANCREATITIS". PT STATES THAT SHE DID NOT INFORM HER PCP THAT THE MEDICATIONS WERE NOT WORKING AND THAT SHE DECIDED TO COME TO THE ED INSTEAD. PT REPORTS N/V. Sepsis Screen: No Definite Risk Source of Information: Patient Exam Limitations: No Limitations History of Present Illness Date Seen by Provider: Aug 26, 2020 Time Seen by Provider: 22:04 Initial Comments This 45-year-old woman presents to the emergency room with about 1 week of symptoms including vomiting and left upper quadrant pain. She reports vomiting up things today that she ate 3 days ago, specifically pickles. She denies any fever, diarrhea, constipation, urinary symptoms, or vaginal symptoms. She has continued to have bowel movements with the last bowel movement being this morning. She reports history of pancreatitis. She does not usually receive treatment for pancreatitis. She treats herself with a clear liquid diet and sy mptoms usually resolve within 24 hours. She has diabetes and has had a history of multiple surgeries including section, cholecystectomy, tubal ligation, and hernia repair. She did take an oxycodone earlier today provided insufficient relief of her pain. She is afebrile at present. Allergies and Home Medications Allergies Coded Allergies: clindamycin (Verified Allergy, Unknown, 05/15/19) ketorolac (Verified Allergy, Unknown, 05/15/19) Home Medications Amitriptyline HCl 25 Mg Tablet, 25 MG PO HS, (Reported) Aspirin 81 Mg Tab.chew, 81 MG PO DAILY, (Reported) Dicyclomine HCl 20 Mg Tablet, 20 MG PO Q6H Prescribed by: HERNANDEZ CALLES on 07/18/192 Hydrocodone Bit/Acetaminophen 1 Ea Tablet, 1 EACH PO Q4H PRN for PAIN-MODERATE Prescribed by: JESSEE SIMS on 07/13/19 1002 Hyoscyamine Sulfate 0.125 Mg Tab.subl, 1-2 TAB SL Q4H Prescribed by: HERNANDEZ CALLES on 07/18/192 Insulin Glargine,Hum.rec.anlog 100 Unit/1 Ml Vial, 14 UNIT SQ HS, (Reported) Insulin Lispro 100 Unit/1 Ml Vial, 5 UNIT SQ TIDAC, (Reported) Valacyclovir HCl 1,000 Mg Tablet, 1,000 MG PO BID, (Reported) Patient Home Medication List Home Medication List Reviewed: Yes Review of Systems Review of Systems Constitutional: no symptoms reported EENTM: No Symptoms Reported Respiratory: No Symptoms Reported Cardiovascular: No Symptoms Reported Gastrointestinal: See HPI Genitourinary: No Symptoms Reported Musculoskeletal: no symptoms reported Skin: no symptoms reported Psychiatric/Neurological: No Symptoms Reported Endocrine: No Symptoms Reported Hematologic/Lymphatic: No Symptoms Reported Past Ugorcja-Apgwhj-Gxqzkd Hx Past Med/Social Hx: Reviewed Nursing Past Med/Soc Hx Patient Social History Alcohol Use: Denies Use Drug of Choice: MARIJUANA Smoking Status: Current Everyday Smoker Type Used: Cigarettes 2nd Hand Smoke Exposure: Yes Recent Infectious Disease Expo: No Recent Hopitalizations: Yes (HERNIA REPAIR 07/13/19) Immunizations Up To Date Tetanus Booster (TDap): Less than 5yrs PED Vaccines UTD: Yes Date of Pneumonia Vaccine: Apr 25, 2019 Date of Influenza Vaccine: Apr 25, 2019 Seasonal Allergies Seasonal Allergies: No Past Medical History Surgeries: Yes ( 1992; BTL 1997; PAULIE + UMBILICAL HERNIA / MEST 2011;EGD + HERNIA) Abdominal, Section, Gallbladder, Tubal Ligation Respiratory: Yes Asthma, COPD Cardiac: Yes (ATRIAL FIBRILLATION-ON ASPIRIN ONLY. 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 ) Rheumatoid Arthritis Endocrine: Yes (IDDM--INSULIN + ORAL MEDICATIONS) Diabetes, Insulin dep HEENT: No Cancer: No Liver Psychosocial: Yes Sleep Difficulties, Anxiety, Depression Integumentary: No Blood Disorders: No Family Medical History PSH: - 1992 -BTL 1997 -CHOLECYSTECTOMY WITH PERIUMBILICAL HERNIA WITH MESH 2011 -EGD WITH INCISIONAL HERNIA REPAIR 07/13/29 Physical Exam Vital Signs Vital Signs - First Documented 08/26/20 22:14 Temp 36.9 Pulse 88 Resp 16 B/P (MAP) 141/78 (99) O2 Delivery Room Air Capillary Refill : Less Than 3 Seconds Height/Weight/BMI Height: '" Weight: 160lbs. oz. 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 nml as tested, no motor/sensory deficits, alert, normal mood/affect, oriented x 3 Skin: normal color, warm/dry Progress/Results/Core Measures Results/Orders Lab Results Laboratory Tests Test 08/26/20 22:31 08/26/20 22:44 Range/Units White Blood Count 8.5 4.3-11.0 10^3/uL Red Blood Count 4.24 3.80-5.11 10^6/uL Hemoglobin 15.1 11.5-16.0 g/dL Hematocrit 44 35-52 % Mean Corpuscular Volume 104 H 80-99 fL Mean Corpuscular Hemoglobin 36 H 25-34 pg Mean Corpuscular Hemoglobin Concent 34 32-36 g/dL Red Cell Distribution Width 12.6 10.0-14.5 % Platelet Count 347 130-400 10^3/uL Mean Platelet Volume 9.3 9.0-12.2 fL Immature Granulocyte % (Auto) 0 % Neutrophils (%) (Auto) 43 42-75 % Lymphocytes (%) (Auto) 49 H 12-44 % Monocytes (%) (Auto) 6 0-12 % Eosinophils (%) (Auto) 2 0-10 % Basophils (%) (Auto) 0 0-10 % Neutrophils # (Auto) 3.6 1.8-7.8 10^3/uL Lymphocytes # (Auto) 4.1 H 1.0-4.0 10^3/uL Monocytes # (Auto) 0.5 0.0-1.0 10^3/uL Eosinophils # (Auto) 0.1 0.0-0.3 10^3/uL Basophils # (Auto) 0.0 0.0-0.1 10^3/uL Immature Granulocyte # (Auto) 0.0 0.0-0.1 10^3/uL Sodium Level 138 135-145 MMOL/L Potassium Level 4.2 3.6-5.0 MMOL/L Chloride Level 103 98-107 MMOL/L Carbon Dioxide Level 22 21-32 MMOL/L Anion Gap 13 5-14 MMOL/L Blood Urea Nitrogen 11 7-18 MG/DL Creatinine 0.83 0.60-1.30 MG/DL Estimat Glomerular Filtration Rate > 60 BUN/Creatinine Ratio 13 Glucose Level 269 H 70-105 MG/DL Calcium Level 9.1 8.5-10.1 MG/DL Corrected Calcium 9.1 8.5-10.1 MG/DL Total Bilirubin 0.2 0.1-1.0 MG/DL Aspartate Amino Transf (AST/SGOT) 7 5-34 U/L Alanine Aminotransferase (ALT/SGPT) 6 0-55 U/L Alkaline Phosphatase 80 40-136 U/L C-Reactive Protein High Sensitivity 0.36 0.00-0.50 MG/DL Total Protein 7.7 6.4-8.2 GM/DL Albumin 4.0 3.2-4.5 GM/DL Lipase 41 8-78 U/L Serum Test, Qualitative NEGATIVE NEGATIVE Urine Color YELLOW Urine Clarity SL CLOUDY Urine pH 7.5 5-9 Urine Specific [place] 1.015 L 1.016-1.022 Urine Protein 2+ H NEGATIVE Urine Glucose (UA) 2+ H NEGATIVE Urine Ketones NEGATIVE NEGATIVE Urine Nitrite NEGATIVE NEGATIVE Urine Bilirubin NEGATIVE NEGATIVE Urine Urobilinogen 0.2 < = 1.0 MG/DL Urine Leukocyte Esterase NEGATIVE NEGATIVE Urine RBC (Auto) 3+ H NEGATIVE Urine RBC 0-2 /HPF Urine WBC 2-5 /HPF Urine Squamous Epithelial Cells 10-25 H /HPF Urine Crystals NONE /LPF Urine Bacteria TRACE /HPF Urine Casts NONE /LPF Urine Mucus NEGATIVE /LPF Urine Culture Indicated NO My Orders Orders - NARCISO ZHOU MD Ua Culture If Indicated (08/26/20 22:04) Ed Iv/Invasive Line Start (08/26/20 22:28) Lactated Ringers (Lr 1000 Ml Iv Solution (08/26/20 22:30) Ondansetron Injection (Zofran Injectio (08/26/20 22:30) Famotidine Injection (Pepcid Injection) (08/26/20 22:30) Fentanyl Injection (Sublimaze Injection (08/26/20 22:30) Cbc With Automated Diff (08/26/20 22:29) Comprehensive Metabolic Panel (08/26/20 22:29) Hs C Reactive Protein (08/26/20 22:29) Hcg,Qualitative Serum (08/26/20 22:29) Lipase (08/26/20 22:29) Lidocaine 2% Viscous 15 Ml (Xylocaine Vi (08/26/20 23:15) Antacid Suspension (Mylanta Suspension (08/26/20 23:15) Ct Abdomen/Pelvis W (08/26/20 23:21) Fentanyl Injection (Sublimaze Injection (08/26/20 23:30) Iohexol Injection (Omnipaque 350 Mg/Ml 1 (08/27/20 00:00) Received Contrast (Hold Metformin- Contr (08/27/20 00:00) Sodium Chloride Flush (Catheter Flush Sy (08/27/20 00:00) Ns (Ivpb) (Sodium Chloride 0.9% Ivpb Bag (08/27/20 00:00) Morphine Injection (Morphine Injection (08/27/20 00:58) Promethazine Injection (Phenergan Injec (08/27/20 01:00) Ns Iv 500 Ml (Sodium Chloride 0.9%) (08/27/20 01:00) Medications Given in ED Current Medications Medications Dose Ordered Sig/Maki Route Start Time Stop Time Status Last Admin Dose Admin Al Hydrox/Mg Hydrox/Simethicone 30 ml ONCE ONCE PO 08/26/20 23:15 08/26/20 23:16 DC 08/26/20 23:07 30 ML Famotidine 20 mg ONCE ONCE IVP 08/26/20 22:30 08/26/20 22:31 DC 08/26/20 22:39 20 MG Fentanyl Citrate 50 mcg ONCE ONCE IVP 08/26/20 22:30 08/26/20 22:31 DC 08/26/20 22:40 50 MCG Fentanyl Citrate 50 mcg ONCE ONCE IVP 08/26/20 23:30 08/26/20 23:31 DC 08/26/20 23:28 50 MCG Iohexol 100 ml ONCE ONCE IV 08/27/20 00:00 08/27/20 00:01 DC 08/26/20 23:51 85 ML Lactated Ringer's 1,000 ml @ 0 mls/hr Q0M ONCE IV 08/26/20 22:30 08/26/20 22:31 DC 08/26/20 22:40 999 MLS/HR Lidocaine HCl 15 ml ONCE ONCE PO 08/26/20 23:15 08/26/20 23:16 DC 08/26/20 23:07 15 ML Ondansetron HCl 8 mg ONCE ONCE IVP 08/26/20 22:30 08/26/20 22:31 DC 08/26/20 22:40 8 MG Promethazine HCl 25 mg ONCE ONCE IVP 08/27/20 01:00 08/27/20 01:01 DC 08/27/20 01:16 25 MG Sodium Chloride 10 ml NEEDED PRN IV 08/27/20 00:00 08/26/20 23:51 10 ML Sodium Chloride 100 ml ONCE ONCE IV 08/27/20 00:00 08/27/20 00:01 DC 08/26/20 23:51 80 ML Sodium Chloride 500 ml @ 0 mls/hr Q0M ONCE IV 08/27/20 01:00 08/27/20 01:01 DC 08/27/20 01:16 999 MLS/HR Vital Signs/I&O 08/26/20 22:14 Temp 36.9 Pulse 88 Resp 16 B/P (MAP) 141/78 (99) O2 Delivery Room Air Blood Pressure Mean: 99 Progress Progress Note : Progress Note Patient was treated with multiple doses of fentanyl to control her pain. Zofran was given for nausea. GI cocktail helped her pain minimally. Lipase was negative. Patient was offered CT scan for further evaluation. She elected to proceed with CT which revealed wall thickening of a segment of the small bowel in the left upper quadrant that was possibly consistent with internal hernia. A focal gastroenteritis was also possibility. Patient was later given morphine for further pain control. Phenergan was given for refractory nausea. Dr Isabel was consulted and requested n.p.o. status with symptomatic control. Patient was admitted to Dr. Perdomo. Diagnostic Imaging Diagonstic Imaging: CT Plain Films/CT/US/NM/MRI: abdomen, pelvis Comments CT abdomen and pelvis viewed by me and stat rad report reviewed. See report for full details. There was "left upper quadrant small bowel configuration suspicious for an internal hernia with associated wall thickening. Differential considerations are angioedema and less likely regional enteritis. Recommend surgical consult." Departure Communication (Admissions) Time/Spoke to Admitting Phy: 01:27 Dr. Perdomo Time/Spoke to Consulting Phy: 01:05 Dr. Isabel Impression Primary Impression: Internal hernia Additional Impressions: Nausea & vomiting Qualified Codes: R11.2 - Nausea with vomiting, unspecified Left upper quadrant pain Disposition: ADMITTED INPATIENT Condition: Improved Admissions Decision to Admit Reason: Admit from ER (General) Decision to Admit/Date: Aug 27, 2020 Time/Decision to Admit Time: 01:05 Departure-Patient Inst. Referrals: MAXX MUNGUIA MD (PCP/Family) Primary Care Physician NARCISO ZHOU MD Aug 27, 2020 01:32
[2020-08-27] MEDS ORDERED: LACTATED RINGERS 1,000 ML IV ONE (02:20)
--- NOTE | 2020-08-27 02:20 | NUR ---
KAREL BRYANT admitted to room 402-1, with an admitting diagnosis of ABD PAIN, INTERNAL HERNIA, NAUSEA/VOMITING, on 08/27/20 from ED via , accompanied by STAFF.KAREL BRYANT introduced to surroundings, call light, bed controls, phone, TV, temperature control, lights, meal times, smoking policy, visitor policy, side rail policy, bathrooms and showers. Patient Rights given to patient in the handbook. KAREL BRYANT verbalizes understanding that [facility] is not responsible for the loss or damage to any personal effects or valuables that are kept in the patients possession during their hospitalization.
--- NOTE | 2020-08-27 02:40 | NUR ---
PT'S , DEREK, NOTIFIED OF ARRIVAL ON 4TH FLOOR AND UPDATED OF SITUATION
[2020-08-27] MEDS ORDERED: ONDANSETRON 4 MG/2 ML (SDV) Z0FRAN IVP PRN (02:45)
[2020-08-27] MEDS: morphine INJ 4 MG/ML 1 ML (VIAL/SYRINGE) IVP PRN ×8 (03:45→21:57)
[2020-08-27] MEDS: LACTATED RINGERS 1,000 ML IV SCH ×3 (03:45→18:07)
[2020-08-27] MEDS: inSUlin ASPART (NovoLOG) 1 UNIT/0.01 ML (CHARGE PER UNIT) SC SCH ×4 (05:39→20:06)
[2020-08-27 06:03] LABS: BASOPHILS % (AUTO) 0 % (0-10); EOSINOPHILS # (AUTO) 0.2 10^3/uL (0.0-0.3); EOSINOPHILS % (AUTO) 2 % (0-10); HEMATOCRIT 39 % (35-52); HEMOGLOBIN 13.1 g/dL (11.5-16.0); LYMPHOCYTES # (AUTO) 4.5 10^3/uL (1.0-4.0); LYMPHOCYTES % (AUTO) 57 % (12-44); MEAN CORPUSCULAR HEMOGLOBIN 35 pg (25-34); MEAN CORPUSCULAR HGB CONC 34 g/dL (32-36); MEAN CORPUSCULAR VOLUME 105 fL (80-99); MEAN PLATELET VOLUME 9.3 fL (9.0-12.2); MONOCYTES # (AUTO) 0.5 10^3/uL (0.0-1.0); MONOCYTES % (AUTO) 7 % (0-12); NEUTROPHILS # (AUTO) 2.6 10^3/uL (1.8-7.8); NEUTROPHILS % (AUTO) 33 % (42-75); PLATELET COUNT 294 10^3/uL (130-400); WHITE BLOOD COUNT 7.9 10^3/uL (4.3-11.0)
[2020-08-27 06:17] LABS: ALBUMIN 3.3 GM/DL (3.2-4.5); CHLORIDE 108 MMOL/L (98-107); SODIUM 138 MMOL/L (135-145)
[2020-08-27 06:18] LABS: CALCIUM 8.4 MG/DL (8.5-10.1)
[2020-08-27 06:19] LABS: GLUCOSE 197 MG/DL (70-105); TOTAL PROTEIN 6.3 GM/DL (6.4-8.2)
[2020-08-27 06:20] LABS: CARBON DIOXIDE 20 MMOL/L (21-32)
[2020-08-27 06:21] LABS: BILIRUBIN,TOTAL 0.2 MG/DL (0.1-1.0)
[2020-08-27 06:23] LABS: ALKALINE PHOSPHATASE 61 U/L (40-136); CREATININE SERUM 0.71 MG/DL (0.60-1.30); GFR ESTIMATED > 60
[2020-08-27 06:24] LABS: BUN/CREATININE RATIO 11
[2020-08-27 06:26] LABS: ALANINE AMINOTRANSFERASE 6 U/L (0-55)
--- NOTE | 2020-08-27 06:59 | Diagnostic Imaging Report ---
PROCEDURE: CT abdomen and pelvis with contrast. TECHNIQUE: Multiple contiguous axial images were obtained through the abdomen and pelvis after administration of intravenous contrast. Auto Exposure Controls were utilized during the CT exam to meet ALARA standards for radiation dose reduction. All CT scans use one or more of the following dose optimizing techniques: automated exposure control, MA and/or KvP adjustment based on patient size and exam type or iterative reconstruction. INDICATION: Abdominal pain. COMPARISON: 07/17/2019 FINDINGS: The lung bases are clear. Gallbladder is surgically absent. Solid organs are grossly unremarkable. There are some prominent thick-walled small bowel loops in the left upper quadrant which could be inflammatory in nature. Partial obstructed internal hernia is not excluded but felt to be less likely. There is moderate constipation primarily in the proximal colon. There is no free air or free fluid. No abscess is seen. There is no mass or lymphadenopathy. The uterus is intact. The urinary bladder normal. Osseous structures are stable. IMPRESSION: 1. Prominent thick-walled small bowel loops in the left upper quadrant possibly representing enteritis versus partial internal hernia however, this entity is felt to be less likely. Followup is recommended. 2. No free air, free fluid or abscess. 3. Proximal colonic constipation. Agree with preliminary report. Dictated by: Dictated on workstation # [id number]
[2020-08-27] MEDS ORDERED: FLU QUADRIvalent (3YOA+) 60 mcg/0.5 ml 2020-21 (AFLURIA) IM ONE (07:00)
--- NOTE | 2020-08-27 07:54 | Consultation - Surgery ---
LYDIA CORDON MED STUDENT 08/27/20 0754: History of Present Illness History of Present Illness Patient Consulted On(satish/time) 08/27/20 07:44 Date Seen by Provider: Aug 27, 2020 Time Seen by Provider: 07:49 History of Present Illness 45 yo F presented to ER yesterday (08/26) due to intractable vomiting and abdominal pain. Pt states she has been unable to keep solid food down for about a week which came on suddenly (no precipitating events). Pt switched to liquids instead of solids. Pt presented to ER when pain was uncontrollable and was no longer able to keep food or liquids down. Pain is located in ULQ, described as 8/10, sharp, constant, and non radiating. Tenderness to palpation in ULQ, LLQ, and epigastric. Food makes pain worse, morphine makes it better. Pt notes fe eling nauseated, lightheaded, and weak. Bowels moving as normal for pt, BM noted each morning. Abdominal surgical hx includes periumbilical hernia repair (2011), incisional hernia repair (2018), and cholecystectomy (2012). Allergies and Home Medications Allergies Coded Allergies: clindamycin (Verified Allergy, Unknown, 05/15/19) ketorolac (Verified Allergy, Unknown, 05/15/19) Home Medications Albuterol Sulfate 18 Gm Hfa.aer.ad, 2 PUFF INH Q4H PRN for SHORTNESS OF BREATH, (Reported) Butalb/Acetaminophen/Caffeine 1 Each Tablet, 1 EA PO DAILY PRN for HEADACHE, (Reported) Diltiazem HCl 180 Mg Capsule.er, 180 MG PO DAILY, (Reported) Gabapentin 300 Mg Capsule, 300 MG PO TID, (Reported) Insulin Glargine,Hum.rec.anlog 100 Unit/1 Ml Vial, 14 UNIT SQ HS, (Reported) LAST FILLED 04-10-2020 10ML VIAL/70 DAY SUPPLY Insulin Lispro 100 Unit/1 Ml Vial, UNIT SQ SLIDING/SCALE, (Reported) LAST FILLED 08-11-2019 #5 VIALS Metformin HCl 1,000 Mg Tablet, 1,000 MG PO DAILY, (Reported) Pantoprazole Sodium 40 Mg Tablet.dr, 40 MG PO DAILY, (Reported) Sucralfate 1 Gm Tablet, 1 GM PO DAILY, (Reported) Valacyclovir HCl 1,000 Mg Tablet, 1,000 MG PO BID, (Reported) Past Hkbrmgy-Rqetvz-Sgngrc Hx Patient Social History Drug of Choice: MARIJUANA Smoking Status: Current Everyday Smoker Type Used: Cigarettes 2nd Hand Smoke Exposure: Yes Recent Hopitalizations: Yes (HERNIA REPAIR 07/13/19) Alcohol Use?: No Substance type: Marijuana Have you traveled recently?: No Immunizations Up To Date Tetanus Booster (TDap): Less than 5yrs PED Vaccines UTD: Yes Date of Pneumonia Vaccine: Apr 25, 2019 Date of Influenza Vaccine: Apr 25, 2019 Seasonal Allergies Seasonal Allergies: No Surgeries History of Surgeries: Yes ( 1992; BTL 1997; PAULIE + UMBILICAL HERNIA / MEST 2011;EGD + HERNIA) Surgeries: Abdominal, Section, Gallbladder, Tubal Ligation Respiratory History of Respiratory Disorde: Yes Respiratory Disorders: Asthma, COPD Cardiovascular History of Cardiac Disorders: Yes (ATRIAL FIBRILLATION-ON ASPIRIN ONLY. 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 ) Musculoskeletal Disorders: Rheumatoid Arthritis Endocrine History of Endocrine Disorders: Yes (IDDM--INSULIN + ORAL MEDICATIONS) Endocrine Disorders: Diabetes, Insulin dep HEENT History of HEENT Disorders: No Cancer History of Cancer: No Cancer: Liver Psychosocial History of Psychiatric Problem: Yes Behavioral Health Disorders: Sleep Difficulties, Anxiety, Depression Integumentary History of Skin or Integumenta: No Blood Transfusions History of Blood Disorders: No Family Medical History Significant Family History: Cancer (Breast cancer maternal aunts), Diabetes (Maternal and paternal) Review of Systems-General Constitutional: No chills; dizziness EENTM: hoarseness, throat pain (sore from vomitting ); No blurred vision, No double vision Respiratory: cough, dyspnea on exertion, phlegm (brown/ yellow) Cardiovascular: No chest pain, No palpitations Gastrointestinal: LUQ, abdominal pain; No dysphagia, No heartburn; nausea Genitourinary: No dysuria, No incontinence : No Musculoskeletal: No back pain, No muscle pain Skin: No change in color, No pruritus Psychiatric/Neurological: Denies Anxiety, Denies Depressed; Numbness (neuropathy in hands), Weakness All Other Systems Reviewed Negative Unless Noted: Yes Physical Exam-General Problems Physical Exam Vital Signs Vital Signs - First Documented 08/26/20 08/27/20 22:14 02:10 Temp 36.9 Pulse 88 Resp 16 B/P (MAP) 141/78 (99) Pulse Ox 93 O2 Delivery Room Air Capillary Refill : Less Than 3 Seconds General Appearance: WD/WN, no apparent distress HEENT: PERRL/EOMI Neck: non-tender, supple, normal inspection Respiratory: chest non-tender, no respiratory distress, no accessory muscle use, wheezing (inspiratory) Cardiovascular: regular rate, rhythm, no edema, no murmur Peripheral Pulses: 2+ Dorsalis Pedis (R), 2+ Left Dors-Pedis (L), 2+ Radial Pulses (R), 2+ Radial Pulses (L) Gastrointestinal: normal bowel sounds, soft, tenderness (LUQ, LLQ, epigastric) Rectal: deferred Back: normal inspection, no vertebral tenderness Extremities: non-tender, normal inspection, no pedal edema Neurologic/Psychiatric: alert, normal mood/affect, oriented x 3, sensory deficit (Neuropathy in hands) Skin: normal color, warm/dry Lymphatic: no adenopathy Data Review Labs Laboratory Tests 08/26/20 22:31: White Blood Count 8.5, Red Blood Count 4.24, Hemoglobin 15.1, Hematocrit 44, Mean Corpuscular Volume 104H, Mean Corpuscular Hemoglobin 36H, Mean Corpuscular Hemoglobin Concent 34, Red Cell Distribution Width 12.6, Platelet Count 347, Mean Platelet Volume 9.3, Immature Granulocyte % (Auto) 0, Neutrophils (%) (Auto) 43, Lymphocytes (%) (Auto) 49H, Monocytes (%) (Auto) 6, Eosinophils (%) (Auto) 2, Basophils (%) (Auto) 0, Neutrophils # (Auto) 3.6, Lymphocytes # (Auto) 4.1H, Monocytes # (Auto) 0.5, Eosinophils # (Auto) 0.1, Basophils # (Auto) 0.0, Immature Granulocyte # (Auto) 0.0, Sodium Level 138, Potassium Level 4.2, Chloride Level 103, Carbon Dioxide Level 22, Anion Gap 13, Blood Urea Nitrogen 11, Creatinine 0.83, Estimat Glomerular Filtration Rate > 60, BUN/Creatinine Ratio 13, Glucose Level 269H, Calcium Level 9.1, Corrected Calcium 9.1, Total Bilirubin 0.2, Aspartate Amino Transf (AST/SGOT) 7, Alanine Aminotransferase (ALT/SGPT) 6, Alkaline Phosphatase 80, C-Reactive Protein High Sensitivity 0.36, Total Protein 7.7, Albumin 4.0, Lipase 41, Serum Test, Qualitative NEGATIVE 08/26/20 22:44: Urine Color YELLOW, Urine Clarity SL CLOUDY, Urine pH 7.5, Urine Specific [place] 1.015L, Urine Protein 2+H, Urine Glucose (UA) 2+H, Urine Ketones NEGATIVE, Urine Nitrite NEGATIVE, Urine Bilirubin NEGATIVE, Urine Urobilinogen 0.2, Urine Leukocyte Esterase NEGATIVE, Urine RBC (Auto) 3+H, Urine RBC 0-2, Urine WBC 2-5, Urine Squamous Epithelial Cells 10-25H, Urine Crystals NONE, Urine Bacteria TRACE, Urine Casts NONE, Urine Mucus NEGATIVE, Urine Culture Indicated NO 08/27/20 05:03: Glucometer 190H 08/27/20 05:23: White Blood Count 7.9, Red Blood Count 3.73L, Hemoglobin 13.1, Hematocrit 39, Mean Corpuscular Volume 105H, Mean Corpuscular Hemoglobin 35H, Mean Corpuscular Hemoglobin Concent 34, Red Cell Distribution Width 12.4, Platelet Count 294, Mean Platelet Volume 9.3, Immature Granulocyte % (Auto) 0, Neutrophils (%) (Auto) 33L, Lymphocytes (%) (Auto) 57H, Monocytes (%) (Auto) 7, Eosinophils (%) (Auto) 2, Basophils (%) (Auto) 0, Neutrophils # (Auto) 2.6, Lymphocytes # (Auto) 4.5H, Monocytes # (Auto) 0.5, Eosinophils # (Auto) 0.2, Basophils # (Auto) 0.0, Immature Granulocyte # (Auto) 0.0, Sodium Level 138, Potassium Level 4.0, Chloride Level 108H, Carbon Dioxide Level 20L, Anion Gap 10, Blood Urea Nitrogen 8, Creatinine 0.71, Estimat Glomerular Filtration Rate > 60, BUN/Creatinine Ratio 11, Glucose Level 197H, Calcium Level 8.4L, Corrected Calcium 9.0, Total Bilirubin 0.2, Aspartate Amino Transf (AST/SGOT) 9, Alanine Aminotransferase (ALT/SGPT) 6, Alkaline Phosphatase 61, Total Protein 6.3L, Albumin 3.3 Assessment/Plan Assessment/Plan Assessment/Plan Possible enteritis vs. internal hernia ULQ abdominal pain Nausea/ vomiting Hx GERD, Hepatitis C - treated, pancreatitis, COPD (08/26) ER ordered CT indicating wall thickening of small bowel in ULQ possibly representing enteritis versus partial internal hernia however, this entity is felt to be less likely NPO Pain management Nausea management YANETHPEGGYHEIDI DO 08/27/20 1205: History of Present Illness History of Present Illness Time Seen by Provider: 11:31 History of Present Illness Pt seen and examined, states pain is about the same as yesterday. She has not had pain like this before; sharp, constant, non-radiating and 8 out of 10. It has lasted longer than any pain before. Allergies and Home Medications Allergies Coded Allergies: clindamycin (Verified Allergy, Unknown, 05/15/19) ketorolac (Verified Allergy, Unknown, 05/15/19) Home Medications Albuterol Sulfate 18 Gm Hfa.aer.ad, 2 PUFF INH Q4H PRN for SHORTNESS OF BREATH, (Reported) Butalb/Acetaminophen/Caffeine 1 Each Tablet, 1 EA PO DAILY PRN for HEADACHE, (Reported) Diltiazem HCl 180 Mg Capsule.er, 180 MG PO DAILY, (Reported) Gabapentin 300 Mg Capsule, 300 MG PO TID, (Reported) Insulin Glargine,Hum.rec.anlog 100 Unit/1 Ml Vial, 14 UNIT SQ HS, (Reported) LAST FILLED 04-10-2020 10ML VIAL/70 DAY SUPPLY Insulin Lispro 100 Unit/1 Ml Vial, UNIT SQ SLIDING/SCALE, (Reported) LAST FILLED 08-11-2019 #5 VIALS Metformin HCl 1,000 Mg Tablet, 1,000 MG PO DAILY, (Reported) Pantoprazole Sodium 40 Mg Tablet.dr, 40 MG PO DAILY, (Reported) Sucralfate 1 Gm Tablet, 1 GM PO DAILY, (Reported) Valacyclovir HCl 1,000 Mg Tablet, 1,000 MG PO BID, (Reported) Patient Home Medication List Home Medication List Reviewed: Yes Past Zriwojv-Tuljqk-Kojugl Hx Surgeries History of Surgeries: Yes Surgeries: Abdominal, Gallbladder Respiratory History of Respiratory Disorde: Yes Respiratory Disorders: COPD Cardiovascular History of Cardiac Disorders: Yes Cardiac Disorders: Hypertension Neurological History of Neurological Disord: Yes Neurological Disorders: Headaches /Migraines, Stroke Reproductive System : No Genitourinary History of Genitourinary Disor: No Gastrointestinal History of Gastrointestinal Di: Yes Gastrointestinal Disorders: Gastroesophageal Reflux, Gall Bladder Disease Musculoskeletal History of Musculoskeletal Dis: Yes Musculoskeletal Disorders: Rheumatoid Arthritis Endocrine History of Endocrine Disorders: Yes Endocrine Disorders: Diabetes, Non-Insulin dep HEENT History of HEENT Disorders: No Loss of Vision: Denies Hearing Impairment: Denies Cancer History of Cancer: No Psychosocial History of Psychiatric Problem: No Family Medical History Significant Family History: Diabetes (Maternal and paternal) Review of Systems-General Constitutional: No chills; dizziness EENTM: hoarseness, throat pain (sore from vomitting ); No blurred vision, No double vision Respiratory: cough, dyspnea on exertion, phlegm (brown/ yellow) Cardiovascular: No chest pain, No palpitations Gastrointestinal: LUQ, abdominal pain; No dysphagia, No heartburn; nausea, vomiting Genitourinary: No dysuria, No incontinence Musculoskeletal: back pain, joint pain, joint swelling, muscle pain, muscle stiffness Skin: No change in color, No pruritus Psychiatric/Neurological: Denies Anxiety, Denies Depressed; Numbness (neuropathy in hands), Weakness Other HEMATOLOGIC Pt denies any hx of abnormal bleeding or bruising. Pt does have hx of Hep C Physical Exam-General Problems Physical Exam General Appearance: WD/WN, no apparent distress Eyes: Bilateral Eye PERRL, Bilateral Eye EOMI HEENT: pharynx normal; No scleral icterus (R), No scleral icterus (L); other (poor dentition) Neck: non-tender, supple Respiratory: chest non-tender, no respiratory distress, no accessory muscle use, wheezing (inspiratory) Cardiovascular: regular rate, rhythm, no edema, no murmur Gastrointestinal: normal bowel sounds, soft, no organomegaly, tenderness (LUQ, LLQ, epigastric); No hernia Back: normal inspection, no vertebral tenderness Extremities: non-tender, normal inspection, no pedal edema Neurologic/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 TECHNIQUE: Multiple contiguous axial images were obtained through the abdomen and pelvis after administration of intravenous contrast. Auto Exposure Controls were utilized during the CT exam to meet ALARA standards for radiation dose reduction. All CT scans use one or more of the following dose optimizing techniques: automated exposure control, MA and/or KvP adjustment based on patient size and exam type or iterative reconstruction. INDICATION: Abdominal pain. COMPARISON: 07/17/2019 FINDINGS: The lung bases are clear. Gallbladder is surgically absent. Solid organs are grossly unremarkable. There are some prominent thick-walled small bowel loops in the left upper quadrant which could be inflammatory in nature. Partial obstructed internal hernia is not excluded but felt to be less likely. There is moderate constipation primarily in the proximal colon. There is no free air or free fluid. No abscess is seen. There is no mass or lymphadenopathy. The uterus is intact. The urinary bladder normal. Osseous structures are stable. IMPRESSION: 1. Prominent thick-walled small bowel loops in the left upper quadrant possibly representing enteritis versus partial internal hernia however, this entity is felt to be less likely. Followup is recommended. 2. No free air, free fluid or abscess. 3. Proximal colonic constipation. Agree with preliminary report. Dictated by: Dictated on workstation # [id number] Dict: 08/27/20 0653 Trans: 08/27/20 0917 [facility] [id number] Interpreted by: MAXIMINO LUEVANO Electronically signed by: MAXIMINO LUEVANO 08/27/20 0917 Assessment/Plan Assessment/Plan Assessment/Plan Enteritis doubt internal hernia LUQ pain N/V Hx of GERD, Hep C, Pancreatitis, COPD Will start pt on some clears and work up for IBD vs. Intestinal Angioedema (IBD panel and C1 inhibitor deficiency). Pain control, IV fluids and anti-emetics as needed. Supervisory-Addendum Brief Verification & Attestation Participated in pt care: history, MDM, physical Personally performed: exam, history, MDM Care discussed with: Medical Student Procedures: n/a Verification and Attestation of Medical Student E/M Service A medical student performed and documented this service. I then reviewed and verified all information documented by the medical student and made mod ifications to such information, when appropriate. I personally performed a physical exam, medical decision making and then discussed any differences between the notes and made revisions as necessary to create one note. Heidi Queen , 08/27/20 , 12:09 LYDIA CORDON MED STUDENT Aug 27, 2020 07:54 HEIDI QUEEN DO Aug 27, 2020 12:05
[2020-08-27] MEDS: FAMOTIDINE 20MG/2ML IV (PEPCID) IVP SCH ×2 (08:25→20:07)
[2020-08-27] MEDS ORDERED: GABA300C PO (09:39)
[2020-08-27] MEDS ORDERED: SUCR1TAB PO (09:39)
[2020-08-27] MEDS ORDERED: ALBU18HF2 INH (09:39)
[2020-08-27] MEDS ORDERED: PANT40TA52 PO (09:39)
[2020-08-27] MEDS ORDERED: BUTA1TAB9 PO (09:39)
[2020-08-27] MEDS ORDERED: METF-399 PO (09:39)
[2020-08-27] MEDS ORDERED: DILT180C82 PO (09:39)
--- NOTE | 2020-08-27 09:58 | NUR ---
SPOKE WITH THE PT, WENT THRU THE EXT MED HISTORY AND CALLED [facility] TO COMPLETE THE MED REC ON THE EXT MED HISTORY SHOWS PREDNISONE 20MG AND TIZANIDINE 2MG BEING FILLED RECENTLY BUT PT DENIES TAKING THESE LANTUS WAS LAST FILLED 04-10-2020 #1 VIAL/70DS HUMALOG WAS LAST FILLED 08-11-2019 #5 VIALS- ACCORDING TO THE PT SHE USES THIS PER SLIDING SCALE AND SOME MEALS SHE HARDLY USES ANY I INCLUDED THE PAST DUE FILL DATE ON THE MED REC OTC MEDS: NONE
--- NOTE | 2020-08-27 10:39 | History & Physical ---
HPI History of Present Illness: Started vomiting a week ago, for last day or so unable to keep down anything. No fever, no diarrhea. Last bowel movement yesterday morning, no blood in stools. Having pain in mid upper to left abdomen which started around the beginning of the vomiting, but has gotten worse. Source: patient Date seen by provider: Aug 27, 2020 Time Seen by Provider: 10:35 Attending Physician Zaira Perdomo MD PCP Audrey Joshi MD Consult Date of Admission Aug 27, 2020 at 01:30 Home Medications Home Medications Reviewed patient Home Medication Reconciliation performed by pharmacy medication reconciliations nanotechnology technician and/or nursing. Patients Allergies have been reviewed. Allergies Coded Allergies: clindamycin (Verified Allergy, Unknown, 05/15/19) ketorolac (Verified Allergy, Unknown, 05/15/19) CNH-Wwmpbd-Rfherq Hx Patient Social History Drug of Choice: MARIJUANA Smoking Status: Current Everyday Smoker 2nd Hand Smoke Exposure: Yes Recent Hopitalizations: Yes (HERNIA REPAIR 07/13/19) Alcohol Use?: No Substance type: Marijuana Tobacco type used: Cigarettes Have you traveled recently?: No Immunizations Up To Date Tetanus Booster (TDap): Less than 5yrs Date of Pneumonia Vaccine: Apr 25, 2019 Date of Influenza Vaccine: Apr 25, 2019 Past Medical History PMHx: DMII COPD HTN HLD A fib RA SurgHx: tubal ligation Cholecystectomy Incisional hernia repair Family Medical History Significant Family History: Cancer (Breast cancer maternal aunts), Diabetes (Maternal and paternal) Review of Systems ([facility]) Constitutional: No fever EENTM: throat pain; No nose congestion Respiratory: cough (chronic), short of breath (mild) Cardiovascular: No chest pain Gastrointestinal: see HPI Genitourinary: No dysuria Musculoskeletal: joint pain (chronic) Skin: No rash Psychiatric/Neurological: Denies Anxiety, Denies Depressed Reviewed Test Results Reviewed Test Results Lab Laboratory Tests Test 08/26/20 22:31 08/26/20 22:44 08/27/20 05:03 08/27/20 05:23 Range/Units White Blood Count 8.5 7.9 4.3-11.0 10^3/uL Red Blood Count 4.24 3.73 L 3.80-5.11 10^6/uL Hemoglobin 15.1 13.1 11.5-16.0 g/dL Hematocrit 44 39 35-52 % Mean Corpuscular Volume 104 H 105 H 80-99 fL Mean Corpuscular Hemoglobin 36 H 35 H 25-34 pg Mean Corpuscular Hemoglobin Concent 34 34 32-36 g/dL Red Cell Distribution Width 12.6 12.4 10.0-14.5 % Platelet Count 347 294 130-400 10^3/uL Mean Platelet Volume 9.3 9.3 9.0-12.2 fL Immature Granulocyte % (Auto) 0 0 % Neutrophils (%) (Auto) 43 33 L 42-75 % Lymphocytes (%) (Auto) 49 H 57 H 12-44 % Monocytes (%) (Auto) 6 7 0-12 % Eosinophils (%) (Auto) 2 2 0-10 % Basophils (%) (Auto) 0 0 0-10 % Neutrophils # (Auto) 3.6 2.6 1.8-7.8 10^3/uL Lymphocytes # (Auto) 4.1 H 4.5 H 1.0-4.0 10^3/uL Monocytes # (Auto) 0.5 0.5 0.0-1.0 10^3/uL Eosinophils # (Auto) 0.1 0.2 0.0-0.3 10^3/uL Basophils # (Auto) 0.0 0.0 0.0-0.1 10^3/uL Immature Granulocyte # (Auto) 0.0 0.0 0.0-0.1 10^3/uL Sodium Level 138 138 135-145 MMOL/L Potassium Level 4.2 4.0 3.6-5.0 MMOL/L Chloride Level 103 108 H 98-107 MMOL/L Carbon Dioxide Level 22 20 L 21-32 MMOL/L Anion Gap 13 10 5-14 MMOL/L Blood Urea Nitrogen 11 8 7-18 MG/DL Creatinine 0.83 0.71 0.60-1.30 MG/DL Estimat Glomerular Filtration Rate > 60 > 60 BUN/Creatinine Ratio 13 11 Glucose Level 269 H 197 H 70-105 MG/DL Calcium Level 9.1 8.4 L 8.5-10.1 MG/DL Corrected Calcium 9.1 9.0 8.5-10.1 MG/DL Total Bilirubin 0.2 0.2 0.1-1.0 MG/DL Aspartate Amino Transf (AST/SGOT) 7 9 5-34 U/L Alanine Aminotransferase (ALT/SGPT) 6 6 0-55 U/L Alkaline Phosphatase 80 61 40-136 U/L C-Reactive Protein High Sensitivity 0.36 0.00-0.50 MG/DL Total Protein 7.7 6.3 L 6.4-8.2 GM/DL Albumin 4.0 3.3 3.2-4.5 GM/DL Lipase 41 8-78 U/L Serum Test, Qualitative NEGATIVE NEGATIVE Urine Color YELLOW Urine Clarity SL CLOUDY Urine pH 7.5 5-9 Urine Specific [place] 1.015 L 1.016-1.022 Urine Protein 2+ H NEGATIVE Urine Glucose (UA) 2+ H NEGATIVE Urine Ketones NEGATIVE NEGATIVE Urine Nitrite NEGATIVE NEGATIVE Urine Bilirubin NEGATIVE NEGATIVE Urine Urobilinogen 0.2 < = 1.0 MG/DL Urine Leukocyte Esterase NEGATIVE NEGATIVE Urine RBC (Auto) 3+ H NEGATIVE Urine RBC 0-2 /HPF Urine WBC 2-5 /HPF Urine Squamous Epithelial Cells 10-25 H /HPF Urine Crystals NONE /LPF Urine Bacteria TRACE /HPF Urine Casts NONE /LPF Urine Mucus NEGATIVE /LPF Urine Culture Indicated NO Glucometer 190 H 70-110 MG/DL Test 08/27/20 10:02 Range/Units Glucometer 150 H 70-110 MG/DL Radiology CT abdomen/pelvis: IMPRESSION: 1. Prominent thick-walled small bowel loops in the left upper quadrant possibly representing enteritis versus partial internal hernia however, this entity is f elt to be less likely. Followup is recommended. 2. No free air, free fluid or abscess. 3. Proximal colonic constipation. Physical Exam-([facility]) Physical Exam Vital Signs VS - Last 72 Hours, by Label 08/26/20 08/27/20 08/27/20 08/27/20 22:14 02:10 02:19 02:20 Temp 36.9 36.9 36.4 Pulse 88 79 86 Resp 16 16 20 B/P (MAP) 141/78 (99) 149/82 (99) 170/95 (120) Pulse Ox 93 98 98 O2 Delivery Room Air Room Air Room Air Room Air 08/27/20 08/27/20 08/27/20 08/27/20 03:22 03:43 08:00 08:00 Temp 36.6 36.3 Pulse 83 88 Resp 18 21 B/P (MAP) 163/94 (117) 162/95 (117) Pulse Ox 98 97 98 98 O2 Delivery Room Air Room Air Room Air Room Air 08/27/20 08/27/20 12:44 16:00 Temp 36.3 36.5 Pulse 83 77 Resp 20 20 B/P (MAP) 160/94 (116) 139/82 (101) Pulse Ox 97 95 O2 Delivery Room Air Room Air Capillary Refill : Less Than 3 Seconds General Appearance: no apparent distress Respiratory: lungs clear, normal breath sounds Cardiovascular: regular rate, rhythm, no murmur Gastrointestinal: soft, tenderness (LUQ), other (hypoactive bowel sounds) Extremities: no pedal edema Neurologic/Psychiatric: alert, normal mood/affect Skin: normal color, warm/dry Assessment/Plan Assessment/Plan Admission Status: Observation (1) Left upper quadrant pain Status: Acute Assessment & Plan: Enteritis versus internal hernia which is thought less likely. Surgery consulted, appreciate recommendations. (2) Nausea & vomiting Status: Acute Qualifiers: Qualified Codes: R11.2 - Nausea with vomiting, unspecified (3) HTN (hypertension) Status: Chronic Qualifiers: Qualified Codes: I10 - Essential (primary) hypertension (4) Acid reflux Status: Chronic (5) DVT prophylaxis Status: Acute Assessment & Plan: Enoxaparin ZAIRA PERDOMO MD Aug 27, 2020 10:39
[2020-08-27] MEDS ORDERED: RT-ALBUTEROL SULF 2.5 MG/3 ML PRE-MIX VIAL INH PRN (10:45)
--- NOTE | 2020-08-27 10:58 | NUR ---
Pt is [employer] and declines Communion. Supervisor [employer] offered blessing.
--- NOTE | 2020-08-27 11:23 | NUR ---
"RD ASSESSMENT PMHx: COPD; afib; hypercholesterolemia; HTN; GERD; pancreatitis; hepatitis; RA; DM; CA(liver); PT INTERACTION: Pt was awake and pleasant during nutrition consult for MST score. Pt states current appetite is not good and has been this way for about 1week. Note pt currently NPO, per chart review. Pt states following a regular diet at home, and has no issues with chewing/swallowing food. Pt states recent issues with nausea and vomiting, and that her last BM was 08/26. Note pt not currently on bowel regimen per chart review. Pt states no recent wt changes. Note unable to determine recent wt hx, per chart review. Pt states current DM management is good and that she counts her carbohydrates at meal times. Note unable to determine recent HbA1c, per chart review. Given PO intake and wt hx, pt is at risk for malnutrition at this time. Est. kcal needs: 1323-0841 kcal | 15-20 kcal/kg Est. Pro needs: 54-68 g Pro | 0.8-1.0 g Pro/kg PES STATEMENT: Inadequate oral intake (NI-2.1) related to loss of appetite, nausea, vomiting, and NPO status, as evidenced by pt interview, and chart review. INTERVENTION: Note pt currently NPO, per chart review. Would recommend diet advancement when medically able and as tolerated. Offered diet education on DM management, but pt declined at this time. May attempt to offer again prior to discharge. Will continue to follow and reassess as pt needs, intake, and status change. Bk ANGELA MS RD [phone] cell"
[2020-08-27] MEDS: GABAPENTIN 300 MG (NEURONTIN) CAP PO SCH ×2 (11:42→20:07)
[2020-08-27] MEDS: PROMETHAZINE INJ 25 MG/ML (PHENERGAN) AMP IVP PRN (12:53)
[2020-08-27] MEDS: ENOXAPARIN 40 MG/0.4 ML (LOVENOX) SYR SQ SCH (12:53)
[2020-08-27] MEDS: VALACYCLOVIR 500 MG TAB (VALTREX) PO SCH (20:06)
[2020-08-27] MEDS ORDERED: NON-FORMULARY MEDICATION 1 EA EA (Valacyclovir HCl (Valacyclovir) 1,000 MG) PO SCH (21:00)
[2020-08-28] MEDS: morphine INJ 4 MG/ML 1 ML (VIAL/SYRINGE) IVP PRN ×5 (00:04→13:08)
[2020-08-28] MEDS: LACTATED RINGERS 1,000 ML IV SCH ×2 (02:14→08:29)
[2020-08-28 04:06] VITALS: BP 168/84
[2020-08-28] MEDS: inSUlin ASPART (NovoLOG) 1 UNIT/0.01 ML (CHARGE PER UNIT) SC SCH ×3 (05:33→16:04)
[2020-08-28] MEDS: PROMETHAZINE INJ 25 MG/ML (PHENERGAN) AMP IVP PRN (05:42)
[2020-08-28 05:56] LABS: BASOPHILS % (AUTO) 1 % (0-10); EOSINOPHILS # (AUTO) 0.2 10^3/uL (0.0-0.3); EOSINOPHILS % (AUTO) 2 % (0-10); HEMATOCRIT 38 % (35-52); HEMOGLOBIN 12.8 g/dL (11.5-16.0); LYMPHOCYTES % (AUTO) 61 % (12-44); MEAN CORPUSCULAR HEMOGLOBIN 35 pg (25-34); MEAN CORPUSCULAR HGB CONC 33 g/dL (32-36); MEAN CORPUSCULAR VOLUME 105 fL (80-99); MEAN PLATELET VOLUME 9.4 fL (9.0-12.2); MONOCYTES # (AUTO) 0.5 10^3/uL (0.0-1.0); MONOCYTES % (AUTO) 7 % (0-12); NEUTROPHILS # (AUTO) 1.9 10^3/uL (1.8-7.8); NEUTROPHILS % (AUTO) 28 % (42-75); PLATELET COUNT 273 10^3/uL (130-400); WHITE BLOOD COUNT 6.6 10^3/uL (4.3-11.0)
[2020-08-28 06:04] LABS: ALBUMIN 3.3 GM/DL (3.2-4.5); CHLORIDE 107 MMOL/L (98-107); POTASSIUM 4.2 MMOL/L (3.6-5.0); SODIUM 139 MMOL/L (135-145)
[2020-08-28 06:05] LABS: CALCIUM 8.3 MG/DL (8.5-10.1)
[2020-08-28 06:06] LABS: GLUCOSE 178 MG/DL (70-105)
[2020-08-28 06:07] LABS: CARBON DIOXIDE 21 MMOL/L (21-32)
[2020-08-28 06:08] LABS: BILIRUBIN,TOTAL 0.2 MG/DL (0.1-1.0)
[2020-08-28 06:10] LABS: ALKALINE PHOSPHATASE 59 U/L (40-136); CREATININE SERUM 0.71 MG/DL (0.60-1.30); GFR ESTIMATED > 60
[2020-08-28 06:11] LABS: BUN/CREATININE RATIO 7
[2020-08-28 06:13] LABS: ALANINE AMINOTRANSFERASE 8 U/L (0-55)
--- NOTE | 2020-08-28 07:34 | Progress Note - Surgery ---
LYDIA CORDON MED STUDENT 08/28/20 0734: Subjective Date Seen by a Provider: Aug 28, 2020 Time Seen by a Provider: 07:15 Subjective/Events-last exam Pt awake and having breakfast upon entry. Pt notes being extremely thirsty over night. Pt confirms pain is still there and becoming more diffuse (8/10). Pt also notes feeling the food/ liquid move through my gut. Nausea is persistent but no vomiting. Review of Systems General: No Chills, No Fatigue HEENT: Head Aches; No Dysphasia Pulmonary: No Dyspnea; Cough (chronic) Cardiovascular: No: Chest Pain, Palpitations Gastrointestinal: Nausea, Abdominal Pain (becoming diffuse); No: Vomiting Musculoskeletal: back pain; No: shoulder pain Neurological: No: Weakness, Confusion Objective Exam Vital Signs Date Time Temp Pulse Resp B/P (MAP) Pulse Ox O2 Delivery O2 Flow Rate FiO2 08/28/20 06:59 94 Room Air 08/28/20 04:06 36.2 75 21 168/84 (112) 96 Room Air 08/27/20 23:20 36.2 75 21 163/82 (109) 93 Room Air 08/27/20 20:00 36.3 77 21 132/77 (95) 95 Room Air 08/27/20 19:30 Room Air 08/27/20 16:00 36.5 77 20 139/82 (101) 95 Room Air 08/27/20 12:44 36.3 83 20 160/94 (116) 97 Room Air 08/27/20 08:00 36.3 88 21 162/95 (117) 98 Room Air 08/27/20 08:00 98 Room Air I & O 08/28/20 07:00 Intake Total 2810 ml Balance 2810 ml Capillary Refill : Less Than 3 Seconds General Appearance: No Apparent Distress, WD/WN HEENT: PERRL/EOMI, Moist Mucous Membranes Neck: Non Tender, Supple Respiratory: Chest Non Tender, No Accessory Muscle Use, No Respiratory Distress, Wheezing (inspiratory) Cardiovascular: Regular Rate, Rhythm, No Edema, No Gallop, No Murmur Peripheral Pulses: 2+ Dorsalis Pedis (R), 2+ Left Dors-Pedis (L), 2+ Radial Pulses (R), 2+ Radial Pulses (L) Gastrointestinal: soft, tenderness (LUQ), other (hypoactive bowel sounds) Extremity: Normal Inspection, Non Tender, No Pedal Edema Neurologic/Psychiatric: Alert, Oriented x3, Normal Mood/Affect Skin: Normal Color, Warm/Dry Lymphatic: No Adenopathy (cervical & axillary ) Results Lab Laboratory Tests 08/27/20 10:02: Glucometer 150H 08/27/20 13:00: 08/27/20 14:29: Glucometer 271H 08/27/20 16:44: Glucometer 251H 08/27/20 19:40: Glucometer 74 08/28/20 04:33: Glucometer 167H 08/28/20 05:10: White Blood Count 6.6, Red Blood Count 3.65L, Hemoglobin 12.8, Hematocrit 38, Mean Corpuscular Volume 105H, Mean Corpuscular Hemoglobin 35H, Mean Corpuscular Hemoglobin Concent 33, Red Cell Distribution Width 12.4, Platelet Count 273, Mean Platelet Volume 9.4, Immature Granulocyte % (Auto) 0, Neutrophils (%) (Auto) 28L, Lymphocytes (%) (Auto) 61H, Monocytes (%) (Auto) 7, Eosinophils (%) (Auto) 2, Basophils (%) (Auto) 1, Neutrophils # (Auto) 1.9, Lymphocytes # (Auto) 4.0, Monocytes # (Auto) 0.5, Eosinophils # (Auto) 0.2, Basophils # (Auto) 0.0, Immature Granulocyte # (Auto) 0.0, Sodium Level 139, Potassium Level 4.2, Chloride Level 107, Carbon Dioxide Level 21, Anion Gap 11, Blood Urea Nitrogen 5L, Creatinine 0.71, Estimat Glomerular Filtration Rate > 60, BUN/Creatinine Ratio 7, Glucose Level 178H, Calcium Level 8.3L, Corrected Calcium 8.9, Total Bilirubin 0.2, Aspartate Amino Transf (AST/SGOT) 13, Alanine Aminotransferase (ALT/SGPT) 8, Alkaline Phosphatase 59, Total Protein 6.0L, Albumin 3.3 Assessment/Plan Assessment/Plan Assessment/Plan Enteritis doubt internal hernia LUQ pain - becoming more diffuse N/V Hx of GERD, Hep C, Pancreatitis, COPD Maintain clears and work up for IBD vs. Intestinal Angioedema (IBD panel and C1 inhibitor deficiency). Pain control, IV fluids and anti-emetics as needed. TYREE ISABEL DO 08/28/20 0938: Subjective Time Seen by a Provider: 09:22 Subjective/Events-last exam Pt seen and examined, states pain is about the same; she is hungry and would like some more food. Review of Systems General: No Chills, No Fatigue HEENT: Head Aches Pulmonary: No Dyspnea; Cough (chronic) Cardiovascular: No: Chest Pain, Palpitations Gastrointestinal: Nausea, Abdominal Pain (becoming diffuse); No: Vomiting Objective Exam General Appearance: No Apparent Distress, WD/WN HEENT: PERRL/EOMI, Moist Mucous Membranes, Other (poor dentition) Respiratory: No Accessory Muscle Use, No Respiratory Distress, Wheezing (inspiratory) Cardiovascular: Regular Rate, Rhythm, No Murmur Gastrointestinal: soft, tenderness (LUQ), other (hypoactive bowel sounds) Neurologic/Psychiatric: Alert, Oriented x3 Skin: Normal Color, Warm/Dry Assessment/Plan Assessment/Plan Assessment/Plan Enteritis doubt internal hernia LUQ pain - becoming more diffuse N/V Hx of GERD, Hep C, Pancreatitis, COPD No surgery is planned and pt can be dc'd home from surgery standpoint, it will be up to medicine to determine when she can go home. I can follow her as an outpt to go over lab tests and follow her abd pain. Will increase to soft; ordered labs to work up for IBD vs. Intestinal Angioedema (IBD panel and C1 inhibitor deficiency). Pain control, IV fluids and anti- emetics as needed. Supervisory-Addendum Brief Verification & Attestation Participated in pt care: history, MDM, physical Personally performed: exam, history, MDM Care discussed with: Medical Student Procedures: n/a Verification and Attestation of Medical Student E/M Service A medical student performed and documented this service. I then reviewed and verified all information documented by the medical student and made modifications to such information, when appropriate. I personally performed a physical exam, medical decision making and then discussed any differences between the notes and made revisions as necessary to create one note. Tyree Isabel , 08/28/20 , 09:38 LYDIA CORDON MED STUDENT Aug 28, 2020 07:34 TYREE ISABEL DO Aug 28, 2020 09:38
--- NOTE | 2020-08-28 07:39 | Progress Note ---
Subjective Subjective Date Seen by Provider: Aug 28, 2020 Time Seen by Provider: 07:00 Pt was seen and examined this morning. She was laying in bed watching TV when I entered the room. Pt stated that her pain was under control but was still experiencing left upper quadrant discomfort and pain with palpation. The patient is still nauseated but denied SOB, dyspnea, or vomiting. She is currently on a clear liquid diet and drinking a lot of water. Review of Systems Gastrointestinal: Nausea, Abdominal Pain Genitourinary: Frequency (slowed down on water consumption this morning) All Other Systems Reviewed All Other Systems Reviewed: Yes Objective Exam Vital Signs Vital Signs - First Documented 08/26/20 08/27/20 22:14 02:10 Temp 36.9 Pulse 88 Resp 16 B/P (MAP) 141/78 (99) Pulse Ox 93 O2 Delivery Room Air Capillary Refill : Less Than 3 Seconds General Appearance: No Apparent Distress, WD/WN, Obese Eyes: Bilateral Eye PERRL, Bilateral Eye EOMI Neck: Normal Inspection, Non Tender, Supple Respiratory: Chest Non Tender, No Accessory Muscle Use, No Respiratory D istress, Rhonci (with inspiration) Cardiovascular: Regular Rate, Rhythm, No Edema, No Gallop, No Murmur, Normal Peripheral Pulses Gastrointestinal: Normal Bowel Sounds, Soft, Tenderness (left upper quadrant) Extremity: Normal Capillary Refill, Normal Inspection, Normal Range of Motion, Non Tender, No Calf Tenderness, No Pedal Edema Neurologic/Psychiatric: Alert, Oriented x3, Normal Mood/Affect Skin: Normal Color, Warm/Dry Results Lab Laboratory Tests 08/27/20 10:02: Glucometer 150H 08/27/20 13:00: 08/27/20 14:29: Glucometer 271H 08/27/20 16:44: Glucometer 251H 08/27/20 19:40: Glucometer 74 08/28/20 04:33: Glucometer 167H 08/28/20 05:10: White Blood Count 6.6, Red Blood Count 3.65L, Hemoglobin 12.8, Hematocrit 38, Mean Corpuscular Volume 105H, Mean Corpuscular Hemoglobin 35H, Mean Corpuscular Hemoglobin Concent 33, Red Cell Distribution Width 12.4, Platelet Count 273, Mean Platelet Volume 9.4, Immature Granulocyte % (Auto) 0, Neutrophils (%) (Auto) 28L, Lymphocytes (%) (Auto) 61H, Monocytes (%) (Auto) 7, Eosinophils (%) (Auto) 2, Basophils (%) (Auto) 1, Neutrophils # (Auto) 1.9, Lymphocytes # (Auto) 4.0, Monocytes # (Auto) 0.5, Eosinophils # (Auto) 0.2, Basophils # (Auto) 0.0, Immature Granulocyte # (Auto) 0.0, Sodium Level 139, Potassium Level 4.2, Chloride Level 107, Carbon Dioxide Level 21, Anion Gap 11, Blood Urea Nitrogen 5L, Creatinine 0.71, Estimat Glomerular Filtration Rate > 60, BUN/Creatinine Ratio 7, Glucose Level 178H, Calcium Level 8.3L, Corrected Calcium 8.9, Total Bilirubin 0.2, Aspartate Amino Transf (AST/SGOT) 13, Alanine Aminotransferase (ALT/SGPT) 8, Alkaline Phosphatase 59, Total Protein 6.0L, Albumin 3.3 Assessment/Plan Assessment/Plan Assessment and Plan Assessment: BP elevated of 168/84 WBC trending down at 6.6 today ventral hernia enteritis with associated left upper quadrant abdominal pain Hgb decreasing at 12.8 today Plan: continue pain control continue clear liquid diet control BP C1 esterase inhibitor and IBD testing per Surg pending Problems: (1) Diabetes mellitus, type 2 (2) HTN (hypertension) Qualifiers: Qualified Codes: I10 - Essential (primary) hypertension (3) COPD (chronic obstructive pulmonary disease) (4) Acid reflux (5) Left upper quadrant pain (6) Nausea & vomiting Qualifiers: Qualified Codes: R11.2 - Nausea with vomiting, unspecified (7) DVT prophylaxis Supervisory-Addendum Brief Verification & Attestation Participated in pt care: history, MDM, physical Personally performed: exam, history Care discussed with: Medical Student Procedures: n/a I personally saw and examined patient today and repeated history and exam and agree with documentation by the medical student. KARINA HSU MED STUDENT Aug 28, 2020 07:39 ZAIRA JONES MD Aug 28, 2020 15:13
[2020-08-28 08:00] VITALS: BP 156/83
[2020-08-28] MEDS: FAMOTIDINE 20MG/2ML IV (PEPCID) IVP SCH (08:15)
[2020-08-28] MEDS: VALACYCLOVIR 500 MG TAB (VALTREX) PO SCH (08:15)
[2020-08-28] MEDS: GABAPENTIN 300 MG (NEURONTIN) CAP PO SCH ×2 (08:15→12:10)
[2020-08-28] MEDS ORDERED: NON-FORMULARY MEDICATION 1 EA EA (Diltiazem HCl (Diltiazem ER) 180 MG) PO SCH (09:00)
[2020-08-28] MEDS ORDERED: PANTOPRAZOLE 40 MG (PROTONIX) TAB PO SCH (09:00)
[2020-08-28] MEDS ORDERED: SUCRALFATE 1 GM (CARAFATE) TAB PO SCH (09:00)
[2020-08-28 12:00] VITALS: BP 144/76
[2020-08-28] MEDS: ENOXAPARIN 40 MG/0.4 ML (LOVENOX) SYR SQ SCH (12:15)
[2020-08-28] MEDS ORDERED: PROM25TA14 PO (15:22)
[2020-08-28] MEDS ORDERED: ATOR20TA66 PO (15:22)
[2020-08-28] MEDS ORDERED: FAMO20TA3 PO (15:22)
[2020-08-28] MEDS ORDERED: OXC5T PO (15:22)
--- NOTE | 2020-08-28 15:33 | Discharge Summary ---
Discharge Summary Hospital Course Problems/Diagnosis: (1) Left upper quadrant pain Status: Acute Assessment & Plan: Enteritis versus internal hernia which is thought less likely. Surgery consulted, appreciate recommendations. C1 esterase inhibitor and IBD panel pending at d/c. Sent with a few oxycodone, discussed no intention for retirement use. (2) Nausea & vomiting Status: Acute Assessment & Plan: Tolerating soft diet at d/c, script for promethazine sent. Qualifiers: Qualified Codes: R11.2 - Nausea with vomiting, unspecified (3) HTN (hypertension) Status: Chronic Qualifiers: Qualified Codes: I10 - Essential (primary) hypertension (4) Acid reflux Status: Chronic Hospital Course Date of Admission: Aug 27, 2020 at 01:30 Admission Diagnosis : Family Physician/Provider: Audrey Joshi MD Date of Discharge: 08/28/20 Discharge Diagnosis: See problem list Hospital Course: See problem list Labs and Pending Lab Test: Laboratory Tests 08/27/20 16:44: Glucometer 251H 08/27/20 19:40: Glucometer 74 08/28/20 04:33: Glucometer 167H 08/28/20 05:10: White Blood Count 6.6, Red Blood Count 3.65L, Hemoglobin 12.8, Hematocrit 38, Mean Corpuscular Volume 105H, Mean Corpuscular Hemoglobin 35H, Mean Corpuscular Hemoglobin Concent 33, Red Cell Distribution Width 12.4, Platelet Count 273, Mean Platelet Volume 9.4, Immature Granulocyte % (Auto) 0, Neutrophils (%) (Auto) 28L, Lymphocytes (%) (Auto) 61H, Monocytes (%) (Auto) 7, Eosinophils (%) (Auto) 2, Basophils (%) (Auto) 1, Neutrophils # (Auto) 1.9, Lymphocytes # (Auto) 4.0, Monocytes # (Auto) 0.5, Eosinophils # (Auto) 0.2, Basophils # (Auto) 0.0, Immature Granulocyte # (Auto) 0.0, Sodium Level 139, Potassium Level 4.2, Chloride Level 107, Carbon Dioxide Level 21, Anion Gap 11, Blood Urea Nitrogen 5L, Creatinine 0.71, Estimat Glomerular Filtration Rate > 60, BUN/Creatinine Ratio 7, Glucose Level 178H, Calcium Level 8.3L, Corrected Calcium 8.9, Total Bilirubin 0.2, Aspartate Amino Transf (AST/SGOT) 13, Alanine Aminotransferase (ALT/SGPT) 8, Alkaline Phosphatase 59, Total Protein 6.0L, Albumin 3.3 08/28/20 11:36: Glucometer 196H Home Meds Active Promethazine Tablet (Promethazine HCl) 25 Mg Tablet 25 Mg PO Q6H PRN Acid Trauma Nurse (FAMOTIDINE) (Famotidine) 20 Mg Tablet 20 Mg PO BID Atorvastatin Calcium 20 Mg Tablet 20 Mg PO DAILY Oxyir Tablet (Oxycodone HCl) 5 Mg Tab 5 Mg PO Q4H PRN Reported [id number]-Wnno 50-325-40 (Butalb/Acetaminophen/Caffeine) 1 Each Tablet 1 Ea PO DAILY PRN Pantoprazole Sodium 40 Mg Tablet.dr 40 Mg PO DAILY Diltiazem ER (Diltiazem HCl) 180 Mg Capsule.er 180 Mg PO DAILY Ventolin Hfa (Albuterol Sulfate) 18 Gm Hfa.aer.ad 2 Puff INH Q4H PRN Neurontin (Gabapentin) 300 Mg Capsule 300 Mg PO TID Sucralfate 1 Gm Tablet 1 Gm PO DAILY Metformin HCl 1,000 Mg Tablet 1,000 Mg PO DAILY Valacyclovir (Valacyclovir HCl) 1,000 Mg Tablet 1,000 Mg PO BID Lantus (Insulin Glargine,Hum.rec.anlog) 100 Unit/1 Ml Vial 14 Unit SQ HS LAST FILLED 04-10-2020 10ML VIAL/70 DAY SUPPLY Humalog (Insulin Lispro) 100 Unit/1 Ml Vial Unit SQ SLIDING/SCALE LAST FILLED 08-11-2019 #5 VIALS Assessment/Pt DC Instructions Follow up with Dr. Joshi on 09/03 at 2 pm. Discharge Diet: Soft Diet Activity as Tolerated: Yes Discharge Physical Examination Allergies: Coded Allergies: clindamycin (Verified Allergy, Unknown, 05/15/19) ketorolac (Verified Allergy, Unknown, 05/15/19) General Appearance: No Apparent Distress Respiratory: Lungs Clear, Normal Breath Sounds Cardiovascular: Regular Rate, Rhythm, No Murmur Gastrointestinal: Normal Bowel Sounds, Soft, Tenderness Skin: Normal Color, Warm/Dry Neurologic/Psychiatric: Alert, Normal Mood/Affect ZAIRA JONES MD Aug 28, 2020 15:33
[2020-08-28 16:00] VITALS: BP 162/82
[2020-08-28 17:53] VITALS: BP 162/82
== END 2020-08-28 17:55 | disposition home or self-care (01) ==
LOC: EDUNIT# 21:59 → ER 22:00 → 4TH 08-27 01:30
PROVIDERS: ADMIT Family Medicine; ATTEND Family Medicine
DX: R10.12 Left upper quadrant pain (principal); R11.2 Nausea with vomiting, unspecified; I10 Essential (primary) hypertension; K21.9 Gastro-esophageal reflux disease without esophagitis; J44.9 Chronic obstructive pulmonary disease, unspecified; E78.00 Pure hypercholesterolemia, unspecified; I48.91 Unspecified atrial fibrillation; E11.9 Type 2 diabetes mellitus without complications; M06.9 Rheumatoid arthritis, unspecified; F41.9 Anxiety disorder, unspecified; F32.9 Major depressive disorder, single episode, unspecified; K44.9 Diaphragmatic hernia without obstruction or gangrene; K46.9 Unspecified abdominal hernia without obstruction or gangrene; F17.210 Nicotine dependence, cigarettes, uncomplicated; Z79.82 Long term (current) use of aspirin; Z79.4 Long term (current) use of insulin; Z79.899 Other long term (current) drug therapy; Z88.1 Allergy status to other antibiotic agents; Z88.5 Allergy status to narcotic agent
CPT/HCPCS: 74177; 80053 ×3; 81000; 82962 ×2; 83690; 84703; 85025 ×3; 86021; 86141; 86671 ×2; 88271; 94760; 99284; G0378; 36415; 90686